=== PATIENT | female | born 1940 | race Caucasian/White ===

== ENCOUNTER 2016-07-06 19:45 | Inpatient (IN) | payer OTHER, MEDICAID ==
[2016-07-06] MEDS ORDERED: NS 1000 ML 1,000 ML IV SCH (22:25)
[2016-07-06] MEDS ORDERED: LASIX IVP ONE (22:25)
[2016-07-06] MEDS ORDERED: STERILE WATER IRRIGATION IR ONE (22:47)
[2016-07-06 23:41] LABS: EOSINOPHILS # (AUTO) 0.1 x10^3/uL (0.0-0.2); MEAN CORPUSCULAR VOLUME 86.7 fL (80.0-100.0); MONOCYTES # (AUTO) 0.4 x10^3/uL (0.3-0.8); NEUTROPHILS # (AUTO) 2.2 x10^3/uL (2.2-4.8); WHITE BLOOD COUNT 3.7 X10^3/uL (3.6-10.0)
[2016-07-06 23:48] LABS: BASOPHILS % (AUTO) 0.4 % (0.2-1.0); EOSINOPHILS % (AUTO) 3.1 % (0.9-2.9); MEAN CORPUSCULAR HEMOGLOBIN 28.1 pg (27.0-34.0); MEAN CORPUSCULAR HGB CONC 32.4 g/dL (33.0-35.0); MEAN PLATELET VOLUME 8.7 fL (7.4-11.0); MONOCYTES % (AUTO) 10.8 % (0.0-13.0); NEUTROPHILS % (AUTO) 58.7 % (42.0-75.0); PLATELET COUNT 110 X10^3/uL (150.0-450.0); RED BLOOD COUNT 2.26 X10^6/uL (3.5-5.4); RED CELL DISTRIBUTION WIDTH 18.4 % (11.6-16.5)
[2016-07-06 23:53] LABS: HEMATOCRIT 19.6 % (36.0-47.0); HEMOGLOBIN 6.4 g/dL (12.0-16.0)
[2016-07-06 23:56] LABS: ALANINE AMINOTRANSFERASE 12 Units/L (12-78); ALBUMIN 1.9 g/dL (3.4-5.0); ALKALINE PHOSPHATASE 82 Units/L (46-116); ASPARTATE AMINO TRANSFERASE 13 Units/L (15-37); BLOOD UREA NITROGEN 17 mg/dL (7-18); CALCIUM 9.2 mg/dL (8.5-10.1); CARBON DIOXIDE 37.7 mmol/L (21-32); CHLORIDE 101 mmol/L (98-107); COR CA(FOR HYPOALB) 10.9 mg/dL (8.5-10.1); COR NA(FOR HYPERGLY) 141 mmol/L (136-145); CREATININE 0.47 mg/dL (0.55-1.02); FREE T4 (FREE THYROXINE) 1.15 ng/dL (0.76-1.46); GLUCOSE 148 mg/dL (65-99); MAGNESIUM 1.7 mg/dL (1.7-2.9); SODIUM 140 mmol/L (136-145); TOTAL PROTEIN 8.2 g/dL (6.4-8.2); TSH (3RD GENERATION) 1.756 uIU/mL (0.358-3.74); eGFR BLACK RACES > 60 (>60); eGFR NON BLACK RACES > 60 (>60)
[2016-07-07 00:03] LABS: BILIRUBIN,URINE NEGATIVE (NEGATIVE); BLOOD/HEMOGLOBIN,URINE 1+ (NEGATIVE); GLUCOSE, URINE NEGATIVE (NEGATIVE); KETONES,URINE NEGATIVE (NEGATIVE); LEUKOCYTE ESTERASE ,URINE 3+ (NEGATIVE); NITRITES,URINE NEGATIVE (NEGATIVE); PROTEIN,URINE NEGATIVE (NEGATIVE); UROBILINOGEN,URINE NORMAL (NORMAL)
[2016-07-07] MEDS ORDERED: SANTYL ONE (00:10)
[2016-07-07 00:23] LABS: IRON 26 ug/dL (50-175); TRANSFERRIN 130 mg/dL (202-364)
[2016-07-07 00:29] LABS: APPEARANCE,URINE SLIGHTLY HAZY (CLEAR); BACTERIA,URINE 1+ /HPF (NEGATIVE); COLOR,URINE YELLOW (YELLOW); SQUAMOUS EPITHELIAL CELL,UR RARE /HPF (NEGATIVE); YEAST,URINE MANY /HPF (NEGATIVE)
[2016-07-07] MEDS: DUONEB 0.5 MG/3 MG NEB SCH ×3 (00:35→11:40)
[2016-07-07 02:56] VITALS: BMI 25.1
[2016-07-07] MEDS ORDERED: NS 250 ML IV 250 ML IV ONE (02:58)
[2016-07-07] MEDS: SANTYL EXT SCH ×2 (03:00→11:52)
--- NOTE | 2016-07-07 08:16 | DR.H&P ---
H&P - History & Physical for Day of: H&P Date: 07/06/16 - Chief Complaint Chief Complaint: Generalized weakness - Allergies Allergies/Adverse Reactions: Allergies Allergy/AdvReac Type Severity Reaction Status Date / Time NOVA Inhibitors Allergy Verified 01/16/16 22:30 Lisinopril Allergy Verified 01/16/16 22:30 Ethanol AdvReac Verified 01/16/16 22:30 [From Duragesic Disc Transdermal System] Fentanyl AdvReac Verified 01/16/16 22:30 [From Duragesic Disc Transdermal System] - History of Present Illness History of Present Illness: Pt is a 75 y/o WF with a h/o multiple medical problems. Pt noted by caregivers to be less active than usual and c/o generalized weakness. Pt had outpt labs ordered 2 days ago with a hgb of 6.8, which was repeated today and hgb noted to be 6.3. Pt was admitted for further w /u and for transfusion of 2 units of PRBC's due to symptomatic anemia. - Past Medical History Past Medical History: Anemia, Arthritis, CHF, COPD, Diabetes, GERD, Hypertension Additional Medical History: H/o G-B syndrome, currently receiving intermittent IGG tx - Past Surgical History Surgical History: Hysterectomy, Joint Replacement, Ortho Surgery - Family History Family Medical History: Diabetes Mellitus, Cancer, Hypertension - Social History Does patient currently use any type of tobacco product: No Type of Tobacco Use: None Alcohol Use: None Drug Use: None - Medications Home Medications: Ascorbic Acid [VITAMIN C tab 500 mg *] 500 mg PO BID 07/06/16 [History Confirmed 07/06/16] Baclofen 10 mg PO BID 07/06/16 [History Confirmed 07/06/16] Collagenase [SANTYL OINTMENT *] 1 applic TOP DAILY 07/06/16 [History Confirmed 07/06/16] Ertapenem Sodium [INVANZ INJ 1 GRAM VIAL *] 1 grams IV DAILY 07/06/16 [History Confirmed 07/06/16] Gabapentin [Gabapentin] 800 mg PO HS 07/06/16 [History Confirmed 07/06/16] Multiple Vitamins W/ Minerals [Multivitamin Adults] 1 tab PO DAILY 07/06/16 [ History Confirmed 07/06/16] Potassium Chloride Microencaps [Klor-Con M10] 10 meq PO BID 07/06/16 [History Confirmed 07/06/16] Sulindac 150 mg PO HS 07/06/16 [History Confirmed 07/06/16] Zinc 50 mg PO DAILY 07/06/16 [History Confirmed 07/06/16] - Review of Systems Constitutional: See HPI Eyes: No Symptoms Reported ENT: No Symptoms Reported Respiratory: No Symptoms Reported Cardiovascular: No Symptoms Reported Gastrointestinal: No Symptoms Reported Genitourinary: No Symptoms Reported Musculoskeletal: No Symptoms Reported Skin: No Symptoms Reported - Physical Exam Vital Signs: Temperature 98.1 F Pulse Rate [Brachial] 90 Pulse Rate 89 Respiratory Rate 20 Blood Pressure [Left Arm] 149/69 Blood Pressure [Left Calf] 149/70 Blood Pressure [Right Calf] 102/54 Blood Pressure 149/70 O2 Sat by Pulse Oximetry 95 Oriented: Normal Eyes: Normal Ear: Normal Nose: Normal Throat: Normal Respiratory: Clear Throughout Cardiovascular: Normal : Normal Auscultation: Bowel Sounds: Normal Palpation: Normal Tenderness: Normal Skin: Normal Musculoskeletal: Normal Mood Description: Calm Affect: Normal Speech Pattern: Clear - Assessment/Plan (1) Symptomatic anemia Status: Acute Plan: 1. Admit for OPO. 2. NS at KVO. 3. UA C&S. 4. CMP, CBC. 5. Type and cross and transfuse 2 U of PRBC's. 6. Repeat CBC in am. 7. Tentatively plan to d/c home in am after transfusions completed. (2) Generalized weakness Status: Acute Plan: As above (3) Guillain-Ovid Status: Chronic Plan: Cont outpt IGG tx as ordered
[2016-07-07] MEDS ORDERED: LASIX ONE (08:21)
[2016-07-07] MEDS ORDERED: DUONEB 0.5 MG/3 MG IN SCH (09:00)
[2016-07-07] MEDS ORDERED: INVANZ INJ 1 GM VIAL IV SCH (09:00)
[2016-07-07] MEDS ORDERED: [UNRECOGNIZED DRUG - OTHER] PO SCH (09:00)
[2016-07-07] MEDS ORDERED: LIORESAL PO SCH (09:00)
[2016-07-07] MEDS ORDERED: CLARITIN PO SCH (09:00)
[2016-07-07] MEDS ORDERED: NEURONTIN CAP 400 MG PO SCH ×2 (09:00→21:00)
[2016-07-07] MEDS ORDERED: [UNRECOGNIZED DRUG - OTHER] PO SCH (09:00)
[2016-07-07] MEDS ORDERED: [UNRECOGNIZED DRUG - OTHER] PO SCH (09:00)
[2016-07-07] MEDS ORDERED: [UNRECOGNIZED DRUG - OTHER] PO SCH (09:00)
[2016-07-07] MEDS ORDERED: VITAMIN C PO SCH (09:00)
[2016-07-07] MEDS ORDERED: SANTYL TOP SCH (09:00)
[2016-07-07] MEDS ORDERED: LASIX PO SCH (09:00)
[2016-07-07] MEDS ORDERED: MICRO K EXTEN CAP 10 MEQ PO SCH (10:00)
[2016-07-07] MEDS ORDERED: PEPCID 20 MG IV PREMIX* 20 MG/50 ML BAG IV SCH (11:00)
[2016-07-07] MEDS ORDERED: PROTONIX INJ 40 MG VIAL IVP SCH (11:00)
[2016-07-07 13:53] LABS: BASOPHILS % (AUTO) 0.6 % (0.2-1.0); EOSINOPHILS # (AUTO) 0.1 x10^3/uL (0.0-0.2); EOSINOPHILS % (AUTO) 1.1 % (0.9-2.9); HEMATOCRIT 27.6 % (36.0-47.0); LYMPHOCYTES # (AUTO) 0.7 X10^3/uL (1.3-2.9); LYMPHOCYTES % (AUTO) 14.9 % (21.0-51.0); MEAN CORPUSCULAR HEMOGLOBIN 28.4 pg (27.0-34.0); MEAN CORPUSCULAR HGB CONC 32.9 g/dL (33.0-35.0); MEAN CORPUSCULAR VOLUME 86.6 fL (80.0-100.0); MEAN PLATELET VOLUME 8.6 fL (7.4-11.0); MONOCYTES # (AUTO) 0.3 x10^3/uL (0.3-0.8); MONOCYTES % (AUTO) 7.4 % (0.0-13.0); NEUTROPHILS # (AUTO) 3.4 x10^3/uL (2.2-4.8); PLATELET COUNT 128 X10^3/uL (150.0-450.0); RED BLOOD COUNT 3.19 X10^6/uL (3.5-5.4); RED CELL DISTRIBUTION WIDTH 16.9 % (11.6-16.5); WHITE BLOOD COUNT 4.5 X10^3/uL (3.6-10.0)
[2016-07-07 13:55] LABS: BLOOD UREA NITROGEN 16 mg/dL (7-18); CALCIUM 8.8 mg/dL (8.5-10.1); CHLORIDE 100 mmol/L (98-107); COR NA(FOR HYPERGLY) 141 mmol/L (136-145); GLUCOSE 177 mg/dL (65-99); HEMOGLOBIN 9.1 g/dL (12.0-16.0); SODIUM 139 mmol/L (136-145); eGFR BLACK RACES > 60 (>60); eGFR NON BLACK RACES > 60 (>60)
[2016-07-07 17:06] VITALS: BP 96/62
[2016-07-07] MEDS: PROPAFENONE HCL PO SCH (17:11)
[2016-07-07] MEDS ORDERED: MIRAPEX TAB 0.25 MG PO SCH (21:00)
[2016-07-07] MEDS ORDERED: SULINDAC PO SCH (21:00)
[2016-07-07] MEDS ORDERED: [UNRECOGNIZED DRUG - OTHER] PO SCH (21:00)
[2016-07-07] MEDS ORDERED: PRAVACHOL PO SCH (21:00)
[2016-07-07] MEDS ORDERED: POTASSIUM CHLORIDE LIQ 20 MEQ UDC PO SCH (21:00)
[2016-07-08] MEDS ORDERED: TAB-A-VITE PO SCH (09:00)
[2016-07-08] MEDS ORDERED: ZANTAC PO SCH (09:00)
[2016-07-08] MEDS ORDERED: ZINC SULFATE PO SCH (09:00)
== END 2016-07-07 17:35 | disposition home health service (06) | DRG 811 ==
LOC: MED/SURG 19:45
PROVIDERS: ADMIT Internal Medicine; ATTEND Internal Medicine
PROC: 30233N1 Transfusion of Nonautologous Red Blood Cells into Peripheral Vein, Percutaneous Approach (ICD-10-PCS; principal; 2016-07-07)
PROC: 30233N1 Transfusion of Nonautologous Red Blood Cells into Peripheral Vein, Percutaneous Approach (ICD-10-PCS; 2016-07-07)
DX: D64.89 Other specified anemias (principal); R53.1 Weakness; R94.31 Abnormal electrocardiogram [ECG] [EKG]; G61.0 Guillain-Barre syndrome; B96.5 Pseudomonas (aeruginosa) (mallei) (pseudomallei) as the cause of diseases classified elsewhere; L89.154 Pressure ulcer of sacral region, stage 4; L89.314 Pressure ulcer of right buttock, stage 4
CPT/HCPCS: 36415; 36430; 80048; 80053; 81001; 82607; 82728; 82746; 83540; 83550; 83735; 84439; 84443; 84466; 85025; 86850; 86900; 86901; 86922; 87086; 87088; 87186; 94640; 94760; A4217; A4222; C9113; P9016; S0028; J1940; J7620

== ENCOUNTER 2017-07-26 11:54 | Inpatient (IN) ==
[2017-07-26] MEDS ORDERED: NS 1000 ML 1,000 ML ONE ×2 (13:05→14:38)
[2017-07-26] MEDS ORDERED: NS 1000 ML 1,000 ML IV ONE (13:13)
[2017-07-26] MEDS: OFIRMEV IV 1000 MG VIAL 500 MG/50 ML VIAL IV PRN ×2 (13:20→14:46)
--- NOTE | 2017-07-26 13:21 | DR.URINEF ---
HPI - Time Seen Time seen: 13:05 - PCP Primary Care Physician: VIJI BROOKS - Complaint Chief Complaint Doctors Comments: I agree with statement as written. In additon patient states that she has been vomiting for one day w/o diarrhea. Chief Complaint:: PT PRESENTED WITH C/O OF < FEVER AND URINARY ISSUES, PT IS A POOR HISTORIAN NO FAMILY HERE AND PT STATES "I CAN'T REMEMBER" PT HAS A TRACH, PICC LINE TO RIGHT AC, COLOSTOMY TO ABD, PEG TUBE , AND SHE C/O THAT SHE 2 SACRAL DRESSINGS". Self Treatment fo Chief Complaint: PT IS ALERT AND ORIENTED AND PT HAS HEMAPALEGIA, AND PAREPALEGIA, PT IS PARALIZED FROM THE WAIST DOWN AND PT CAN'T MOVE HER RIGHT EXT'S. - Source History Provided: Patient - Mode of Arrival Mode of Arrival: EMS - Timing Onset of Chief Complaint: 07/26/17 PMH - PMH Past Medical History: Yes Past Medical History: Anemia, Anxiety, Arthritis, CHF, Depression, Diabetes, Dyslipidemia, GERD, Hypertension Past Medical History Comment: UTI, DIVERTICULITIS , PACERMAKER, HX. EDGAR VILLALPANDO AND PARAPLEGIC, HEMIPLEGIA ,, Past Surgical History: Yes Surgical History: Hysterectomy, Joint Replacement, Ortho Surgery - Family History History of Family Medical Conditions: Yes Family Medical History: Diabetes Mellitus, Cancer, Hypertension - Social History Does patient currently use any type of tobacco product: No Have you used tobacco products in the last 12 months: No Type of Tobacco Use: None Does any household member use tobacco: No Alcohol Use: None Do you use any recreational Drugs:: No Lives With: Family Lives Where: Home - infectious screening In the last 2 months have you had wt loss of >10#?: YES Have you had fever, night sweats or hemotysis?: Yes Have you traveled outside the country in the last 6 months?: No Isolation: Standard ROS - Review of Systems Eyes: No Symptoms Reported ENTM: No Symptoms Reported Respiratoy: No Symptoms Reported Cardiovascular: No Symptoms Reported Gastrointestinal/Abdominal: Vomiting Genitourinary: Dysuria Neurological: No Symptoms Reported Musculoskeletal: No Symptoms Reported Integumentary: No Symptoms Reported Hematologic/Lymphatic: No Symptoms Reported Endocrine: No Symptoms Reported Psychiatric: No Symptoms Reported All Other Systems: Reviewed and Negative PE - Vital Signs Vitals: Temperature 103.2 F Pulse Rate [Left] 96 Pulse Rate 70 Respiratory Rate 20 Blood Pressure [Left Arm] 96/62 Blood Pressure [Left Calf] 149/70 Blood Pressure [Right Calf] 113/96 Blood Pressure 99/50 O2 Sat by Pulse Oximetry 98 - General Limitations: No Limitations General Appearance: Alert, In No Apparent Distress - Head Head Exam: Normal Inspection, Atraumatic - Eyes Eye exam: Normal Appearance, PERRL, EOMI - ENT ENT Exam: Mucous Membranes Dry - Neck Neck Exam: Normal Inspection - Chest Chest Inspection: Normal Inspection, Symmetric Chest Wall Rise - Respiratory Respiratory Exam: Normal Lung Sounds Bilat Respiratory Exam: Bilateral Clear to Auscultation - Cardiovascular Cardiovascular Exam: Regular Rate, Normal Rhythm - Abdominal Exam Abdominal Exam: Normal Inspection, Normal Bowel Sounds Abdominal Tenderness: negative: RUQ, RLQ, LUQ, LLQ, Epigastrium, Suprapubic, Diffuse, Mild, Moderate, Severe, Other - Rectal Rectal Exam: Deferred - Genitourinary External Exam: Female: Deferred : Speculum Exam (Female): Deferred : Bimanual Exam (female): Deferred - Extremities Extremities Exam: Normal Inspection - Back Back Exam: Normal Inspection, Full ROM - Neurologic Neurological Exam: Alert, Oriented X3, CN II-XII Intact - Psychiatric Psychiatric Exam: Normal Affect, Normal Mood - Skin Skin Exam: Warm, Dry Course - Consultation Called: 15:20 (Dr Hartley agreed to admit for further treatment) ROR - Labs Reviewed Result Diagrams: 07/26/17 13:15 07/26/17 13:15 Laboratory: WBC 13.5 X10^3/uL (3.6-10.0) H 07/26/17 13:15 RBC 2.97 X10^6/uL (3.5-5.4) L 07/26/17 13:15 Hgb 8.8 g/dL (12.0-16.0) L 07/26/17 13:15 Hct 26.8 % (36.0-47.0) L 07/26/17 13:15 MCV 90.2 fL (80.0-100.0) 07/26/17 13:15 MCH 29.6 pg (27.0-34.0) 07/26/17 13:15 MCHC 32.9 g/dL (33.0-35.0) L 07/26/17 13:15 RDW 15.4 % (11.6-16.5) 07/26/17 13:15 Plt Count 198 X10^3/uL (150.0-450.0) 07/26/17 13:15 MPV 8.1 fL (7.4-11.0) 07/26/17 13:15 Neut % (Auto) 89.2 % (42.0-75.0) H 07/26/17 13:15 Lymph % (Auto) 5.0 % (21.0-51.0) L 07/26/17 13:15 [place] % (Auto) 5.4 % (0.0-13.0) 07/26/17 13:15 Eos % (Auto) 0.2 % (0.9-2.9) L 07/26/17 13:15 Baso % (Auto) 0.2 % (0.2-1.0) 07/26/17 13:15 Neut # (Auto) 12.0 x10^3/uL (2.2-4.8) H 07/26/17 13:15 Lymph # (Auto) 0.7 X10^3/uL (1.3-2.9) L 07/26/17 13:15 [place] # (Auto) 0.7 x10^3/uL (0.3-0.8) 07/26/17 13:15 Eos # (Auto) 0.0 x10^3/uL (0.0-0.2) 07/26/17 13:15 Baso # (Auto) 0.0 X10^3/uL (0.0-0.1) 07/26/17 13:15 Absolute Nucleated RBC 0.0 /100WBC 07/26/17 13:15 Sodium 136 mmol/L (136-145) 07/26/17 13:15 Corrected Sodium TNP 07/26/17 13:15 Potassium 4.3 mmol/L (3.5-5.1) 07/26/17 13:15 Chloride 99 mmol/L (98-107) 07/26/17 13:15 Carbon Dioxide 28.2 mmol/L (21-32) 07/26/17 13:15 BUN 20 mg/dL (7-18) H 07/26/17 13:15 Creatinine 0.47 mg/dL (0.55-1.02) L 07/26/17 13:15 Est GFR (MDRD) Af Amer > 60 (>60) 07/26/17 13:15 Est GFR (MDRD) Non-Af > 60 (>60) 07/26/17 13:15 Glucose 86 mg/dL (65-99) 07/26/17 13:15 Lactic Acid < 0.3 mmol/L (0.4-2.0) L 07/26/17 13:15 Calcium 8.5 mg/dL (8.5-10.1) 07/26/17 13:15 Corrected Calcium 10.1 mg/dL (8.5-10.1) 07/26/17 13:15 Total Bilirubin 0.60 mg/dL (0.2-1.0) 07/26/17 13:15 AST 13 Units/L (15-37) L 07/26/17 13:15 ALT 14 Units/L (12-78) 07/26/17 13:15 Alkaline Phosphatase 91 Units/L (46-116) 07/26/17 13:15 Creatine Kinase 21 Units/L (26-192) L 07/26/17 13:15 CK-MB (CK-2) < 1.0 ng/mL (0-4.0) 07/26/17 13:15 CK/CKMB % Calc 4.8 % (<4) 07/26/17 13:15 Troponin I < 0.02 ng/mL (0-1.5) 07/26/17 13:15 C-Reactive Protein 178.80 mg/L (0-3.0) H 07/26/17 13:15 Total Protein 6.5 g/dL (6.4-8.2) 07/26/17 13:15 Albumin 2.0 g/dL (3.4-5.0) L 07/26/17 13:15 Globulin 4.5 g/dL (2.5-4.5) 07/26/17 13:15 Albumin/Globulin Ratio 0.4 Ratio (1.1-2.1) L 07/26/17 13:15 Specimen Type Catherized urine 07/26/17 13:20 Urine Color Yellow (YELLOW) 07/26/17 13:20 Urine Appearance Hazy (CLEAR) 07/26/17 13:20 Urine pH 5.0 (5.0 - 8.0) 07/26/17 13:20 Ur Specific [place] 1.015 (1.000-1.030) 07/26/17 13:20 Urine Protein 2+ (NEGATIVE) 07/26/17 13:20 Urine Glucose (UA) Negative (NEGATIVE) 07/26/17 13:20 Urine Ketones 3+ (NEGATIVE) 07/26/17 13:20 Urine Occult Blood 3+ (NEGATIVE) 07/26/17 13:20 Urine Nitrite Positive (NEGATIVE) 07/26/17 13:20 Urine Bilirubin Negative (NEGATIVE) 07/26/17 13:20 Urine Urobilinogen Normal (NORMAL) 07/26/17 13:20 Ur Leukocyte Esterase 3+ (NEGATIVE) 07/26/17 13:20 Urine RBC 5-10 /HPF (NONE SEEN) 07/26/17 13:20 Urine WBC 20-30 /HPF (NONE SEEN) 07/26/17 13:20 Ur Squamous Epith Cells Few /HPF (NEGATIVE) 07/26/17 13:20 Urine Bacteria Trace /HPF (NEGATIVE) 07/26/17 13:20 Hyaline Casts Few /LPF (NEGATIVE) 07/26/17 13:20 Urine Mucus Few /HPF (NEGATIVE) 07/26/17 13:20 Ur Culture Indicated? Yes/culture set up 07/26/17 13:20 - XRAY XRAY Interpreted by: Radiologist (Chest: Moderate elevqation of the right hemidiaphragm is noted. Very minimal bibasilar atelectatic change/infiltrate is noted. The heart is obscured on the right. Electronic cardiac device is present on the left and its leads apopear to be in appropriate position. A tracheostomy tube is prestnt. Prior cervical spine surgery been performed. Moderate to moderately severe degenerative changes noted in the visualized shoulders. Impression: Moderate elevation of the right right hemidiaphragm. Minimal bibasilar atelectatic change/infiltrate. No significant change is noted when compared to the prior examination.) - Diagnosis Discharge Problem: UTI (urinary tract infection), Dehydration, mild, Rule Out Bactremia - Discharge Plan Condition: Stable - Follow ups/Referrals Follow ups/Referrals: JULIANNE HALLMAN [Primary Care Provider] - 3 days - Instructions
[2017-07-26 13:35] LABS: BASOPHILS % (AUTO) 0.2 % (0.2-1.0); EOSINOPHILS % (AUTO) 0.2 % (0.9-2.9); HEMATOCRIT 26.8 % (36.0-47.0); HEMOGLOBIN 8.8 g/dL (12.0-16.0); LYMPHOCYTES # (AUTO) 0.7 X10^3/uL (1.3-2.9); MEAN CORPUSCULAR HEMOGLOBIN 29.6 pg (27.0-34.0); MEAN CORPUSCULAR HGB CONC 32.9 g/dL (33.0-35.0); MEAN CORPUSCULAR VOLUME 90.2 fL (80.0-100.0); MEAN PLATELET VOLUME 8.1 fL (7.4-11.0); MONOCYTES # (AUTO) 0.7 x10^3/uL (0.3-0.8); MONOCYTES % (AUTO) 5.4 % (0.0-13.0); NEUTROPHILS % (AUTO) 89.2 % (42.0-75.0); PLATELET COUNT 198 X10^3/uL (150.0-450.0); RED BLOOD COUNT 2.97 X10^6/uL (3.5-5.4); RED CELL DISTRIBUTION WIDTH 15.4 % (11.6-16.5); WHITE BLOOD COUNT 13.5 X10^3/uL (3.6-10.0)
[2017-07-26 13:37] LABS: CHLORIDE 99 mmol/L (98-107); SODIUM 136 mmol/L (136-145)
--- NOTE | 2017-07-26 13:39 | RAD ---
HISTORY: Fever. Study: AP portable chest Comparison: 01/16/2016 Findings: Moderate elevation of the right hemidiaphragm is noted. Very minimal bibasilar atelectatic change/in filtrate is noted. The heart is obscured on the right. Electronic cardiac device is present on the left and its leads appear to be in appropriate position. A tracheostomy tube is present. Prior cerv ical spine surgery been performed.. Moderate to moderately severe degenerative changes noted in the visualized shoulders. IMPRESSION: 1. Moderate elevation of the right hemidiaphragm. 2. Minimal bibasilar atelectatic change/infiltrate. 3. No significant change is noted when compared to the prior examination. Reported By:
[2017-07-26 13:46] LABS: BILIRUBIN,URINE NEGATIVE (NEGATIVE); BLOOD/HEMOGLOBIN,URINE 3+ (NEGATIVE); GLUCOSE, URINE NEGATIVE (NEGATIVE); KETONES,URINE 3+ (NEGATIVE); LEUKOCYTE ESTERASE ,URINE 3+ (NEGATIVE); NITRITES,URINE POSITIVE (NEGATIVE); PROTEIN,URINE 2+ (NEGATIVE); UROBILINOGEN,URINE NORMAL (NORMAL)
[2017-07-26 13:47] LABS: APPEARANCE,URINE HAZY (CLEAR); BACTERIA,URINE TRACE /HPF (NEGATIVE); COLOR,URINE YELLOW (YELLOW); HYALINE CASTS, URINE FEW /LPF (NEGATIVE); MUCUS,URINE FEW /HPF (NEGATIVE); SQUAMOUS EPITHELIAL CELL,UR FEW /HPF (NEGATIVE)
[2017-07-26 13:58] LABS: ALANINE AMINOTRANSFERASE 14 Units/L (12-78); ALKALINE PHOSPHATASE 91 Units/L (46-116); ASPARTATE AMINO TRANSFERASE 13 Units/L (15-37); BLOOD UREA NITROGEN 20 mg/dL (7-18); CALCIUM 8.5 mg/dL (8.5-10.1); CARBON DIOXIDE 28.2 mmol/L (21-32); COR CA(FOR HYPOALB) 10.1 mg/dL (8.5-10.1); CREATININE 0.47 mg/dL (0.55-1.02); TOTAL PROTEIN 6.5 g/dL (6.4-8.2); eGFR NON BLACK RACES > 60 (>60)
[2017-07-26 14:05] LABS: LACTIC ACID < 0.3 mmol/L (0.4-2.0)
[2017-07-26 14:11] LABS: CREATINE KINASE 21 Units/L (26-192); CREATINE KINASE MB < 1.0 ng/mL (0-4.0); TROPONIN I < 0.02 ng/mL (0-1.5)
[2017-07-26 14:12] LABS: CKMB % 4.8 % (<4)
[2017-07-26] MEDS ORDERED: OFIRMEV IV 1000 MG VIAL 500 MG/50 ML VIAL IV PRN (14:50)
[2017-07-26] MEDS ORDERED: ANCEF VIAL 1 GRAM 1 G in NS 100 ML IV + SPIKE MINIBAG* 100 ML IV ONE (14:51)
[2017-07-26] MEDS ORDERED: ANCEF VIAL 1 GRAM ONE (14:52)
[2017-07-26] MEDS ORDERED: NS 100 ML IV + SPIKE MINIBAG* 100 ML IV ONE ×2 (14:53→22:11)
[2017-07-26] MEDS ORDERED: GENTAMICIN INJ 80 MG in NS 100 ML IV 100 ML IV ONE (15:49)
[2017-07-26] MEDS ORDERED: BACTROBAN TOPICAL OINT TOP PRN (15:51)
[2017-07-26] MEDS ORDERED: PATIENT'S HOME MEDICATION (Albuterol Sulfate 1 INH) INH PRN (15:51)
[2017-07-26] MEDS ORDERED: SANTYL TOP PRN (15:51)
[2017-07-26] MEDS ORDERED: DUONEB 0.5 MG/3 MG IN PRN (15:51)
[2017-07-26] MEDS ORDERED: DUONEB 0.5 MG/3 MG ONE (16:18)
[2017-07-26] MEDS: DUONEB 0.5 MG/3 MG IN PRN (16:20)
[2017-07-26] MEDS ORDERED: VENTOLIN or PROAIR HFA IN PRN (16:34)
[2017-07-26] MEDS ORDERED: STERILE WATER IRRIGATION IR ONE (18:11)
[2017-07-26 20:25] LABS: CKMB % 5.6 % (<4); CREATINE KINASE 18 Units/L (26-192); CREATINE KINASE MB < 1.0 ng/mL (0-4.0); TROPONIN I 0.02 ng/mL (0-1.5)
[2017-07-26] MEDS ORDERED: PATIENT'S HOME MEDICATION (Potassium Chloride [Klor-Con 10] 1 TAB) PO SCH (21:00)
[2017-07-26] MEDS: MICRO K EXTEN CAP 10 MEQ PO SCH (21:28)
[2017-07-26] MEDS: NEURONTIN CAP 400 MG PO SCH (21:29)
[2017-07-26] MEDS: PriLOSEC PO SCH (21:30)
[2017-07-26] MEDS ORDERED: PROPAFENONE HCL PO SCH (22:00)
[2017-07-26] MEDS: PROPAFENONE HCL PO SCH (22:01)
[2017-07-26] MEDS ORDERED: AMPICILLIN VIAL 1 GRAM ONE (22:11)
[2017-07-26] MEDS ORDERED: GENTAMICIN INJ ONE (22:20)
[2017-07-26] MEDS: AMPICILLIN VIAL 1 GRAM 1 G in NS 50 ML IV + SPIKE MINIBAG* 50 ML IV SCH (22:21)
[2017-07-26] MEDS: SULINDAC PO SCH (22:22)
[2017-07-26] MEDS ORDERED: NS 100 ML IV 100 ML IV ONE (23:41)
[2017-07-27] MEDS: AMPICILLIN VIAL 1 GRAM 1 G in NS 50 ML IV + SPIKE MINIBAG* 50 ML IV SCH (03:10)
[2017-07-27] MEDS ORDERED: NS 100 ML IV + SPIKE MINIBAG* 100 ML IV ONE ×2 (03:11→08:03)
[2017-07-27] MEDS ORDERED: AMPICILLIN VIAL 1 GRAM ONE ×2 (03:11→08:01)
[2017-07-27 05:53] LABS: BILIRUBIN,URINE 1+ (NEGATIVE); BLOOD/HEMOGLOBIN,URINE 3+ (NEGATIVE); GLUCOSE, URINE NEGATIVE (NEGATIVE); KETONES,URINE 4+ (NEGATIVE); LEUKOCYTE ESTERASE ,URINE 2+ (NEGATIVE); NITRITES,URINE POSITIVE (NEGATIVE); PROTEIN,URINE 2+ (NEGATIVE); UROBILINOGEN,URINE 2+ (NORMAL)
[2017-07-27 06:00] LABS: APPEARANCE,URINE SLIGHTLY HAZY (CLEAR); BACTERIA,URINE TRACE /HPF (NEGATIVE); COLOR,URINE AMBER (YELLOW); MUCUS,URINE FEW /HPF (NEGATIVE); RBC,URINE 20-30 /HPF (NONE SEEN); SQUAMOUS EPITHELIAL CELL,UR RARE /HPF (NEGATIVE)
[2017-07-27] MEDS: D5 1/2 NS 1000 ML 1,000 ML IV SCH ×2 (06:02→15:24)
[2017-07-27] MEDS: PROPAFENONE HCL PO SCH ×3 (06:02→21:00)
[2017-07-27 06:10] LABS: BASOPHILS # (AUTO) 0.1 X10^3/uL (0.0-0.1); BASOPHILS % (AUTO) 0.3 % (0.2-1.0); HEMATOCRIT 24.5 % (36.0-47.0); HEMOGLOBIN 8.1 g/dL (12.0-16.0); LYMPHOCYTES # (AUTO) 0.7 X10^3/uL (1.3-2.9); LYMPHOCYTES % (AUTO) 3.9 % (21.0-51.0); MEAN CORPUSCULAR HEMOGLOBIN 29.9 pg (27.0-34.0); MEAN CORPUSCULAR HGB CONC 32.8 g/dL (33.0-35.0); MEAN CORPUSCULAR VOLUME 90.9 fL (80.0-100.0); MEAN PLATELET VOLUME 8.1 fL (7.4-11.0); MONOCYTES % (AUTO) 6.1 % (0.0-13.0); NEUTROPHILS # (AUTO) 15.1 x10^3/uL (2.2-4.8); NEUTROPHILS % (AUTO) 89.7 % (42.0-75.0); PLATELET COUNT 177 X10^3/uL (150.0-450.0); RED CELL DISTRIBUTION WIDTH 15.4 % (11.6-16.5); WHITE BLOOD COUNT 16.9 X10^3/uL (3.6-10.0)
[2017-07-27 06:21] LABS: ALANINE AMINOTRANSFERASE < 6 Units/L (12-78); ALBUMIN 1.7 g/dL (3.4-5.0); ALKALINE PHOSPHATASE 77 Units/L (46-116); ASPARTATE AMINO TRANSFERASE 15 Units/L (15-37); BLOOD UREA NITROGEN 21 mg/dL (7-18); CARBON DIOXIDE 26.7 mmol/L (21-32); CHLORIDE 100 mmol/L (98-107); COR CA(FOR HYPOALB) 9.8 mg/dL (8.5-10.1); CREATININE 0.53 mg/dL (0.55-1.02); SODIUM 138 mmol/L (136-145); TOTAL PROTEIN 5.8 g/dL (6.4-8.2); eGFR NON BLACK RACES > 60 (>60)
[2017-07-27] MEDS: VITAMIN C PO SCH (09:19)
[2017-07-27] MEDS: AMPICILLIN VIAL 1 GRAM 1 G in NS 100 ML IV + SPIKE MINIBAG* 100 ML IV SCH ×3 (09:19→21:03)
[2017-07-27] MEDS: CLARITIN PO SCH (09:20)
[2017-07-27] MEDS: LASIX PO SCH (09:20)
[2017-07-27] MEDS: MICRO K EXTEN CAP 10 MEQ PO SCH ×2 (09:20→20:43)
[2017-07-27] MEDS: TYLENOL 500 MG TAB EXTRA STRENGTH PO PRN ×2 (09:45→17:52)
[2017-07-27 10:07] VITALS: BMI 23.6
[2017-07-27] MEDS ORDERED: NS IRRIGATION 500 ML IR ONE (10:26)
[2017-07-27] MEDS ORDERED: MAALOX or MYLANTA ONE (11:37)
[2017-07-27] MEDS: MAALOX or MYLANTA PO PRN ×2 (12:14→17:52)
[2017-07-27] MEDS: ZOFRAN INJ 4 MG VIAL IVP PRN (17:06)
[2017-07-27] MEDS: PEPCID 20 MG IV PREMIX* 20 MG/50 ML BAG IV SCH (20:40)
[2017-07-27] MEDS: NEURONTIN CAP 400 MG PO SCH (20:43)
[2017-07-27] MEDS: PriLOSEC PO SCH (20:44)
[2017-07-27] MEDS: SULINDAC PO SCH (20:46)
[2017-07-27] MEDS ORDERED: PEPCID 20 MG IV PREMIX* 50 ML IV SCH (21:00)
[2017-07-28] MEDS: D5 1/2 NS 1000 ML 1,000 ML IV SCH ×4 (00:14→10:37)
[2017-07-28] MEDS: AMPICILLIN VIAL 1 GRAM 1 G in NS 100 ML IV + SPIKE MINIBAG* 100 ML IV SCH ×2 (03:15→08:32)
[2017-07-28] MEDS: PROPAFENONE HCL PO SCH ×3 (05:17→21:19)
[2017-07-28 05:18] LABS: BASOPHILS # (AUTO) 0.1 X10^3/uL (0.0-0.1); BASOPHILS % (AUTO) 0.3 % (0.2-1.0); HEMATOCRIT 22.7 % (36.0-47.0); HEMOGLOBIN 7.3 g/dL (12.0-16.0); LYMPHOCYTES # (AUTO) 0.5 X10^3/uL (1.3-2.9); LYMPHOCYTES % (AUTO) 2.2 % (21.0-51.0); MEAN CORPUSCULAR HEMOGLOBIN 29.5 pg (27.0-34.0); MEAN CORPUSCULAR HGB CONC 32.4 g/dL (33.0-35.0); MEAN CORPUSCULAR VOLUME 91.2 fL (80.0-100.0); MONOCYTES # (AUTO) 1.2 x10^3/uL (0.3-0.8); NEUTROPHILS # (AUTO) 21.5 x10^3/uL (2.2-4.8); NEUTROPHILS % (AUTO) 92.5 % (42.0-75.0); PLATELET COUNT 187 X10^3/uL (150.0-450.0); RED BLOOD COUNT 2.49 X10^6/uL (3.5-5.4); RED CELL DISTRIBUTION WIDTH 15.6 % (11.6-16.5); WHITE BLOOD COUNT 23.3 X10^3/uL (3.6-10.0)
[2017-07-28 05:21] LABS: ALANINE AMINOTRANSFERASE 9 Units/L (12-78); ALBUMIN 1.5 g/dL (3.4-5.0); ALKALINE PHOSPHATASE 82 Units/L (46-116); ASPARTATE AMINO TRANSFERASE 13 Units/L (15-37); BLOOD UREA NITROGEN 21 mg/dL (7-18); CALCIUM 7.4 mg/dL (8.5-10.1); CARBON DIOXIDE 27.8 mmol/L (21-32); CHLORIDE 97 mmol/L (98-107); COR CA(FOR HYPOALB) 9.4 mg/dL (8.5-10.1); COR NA(FOR HYPERGLY) 132 mmol/L (136-145); CREATININE 0.55 mg/dL (0.55-1.02); SODIUM 130 mmol/L (136-145); TOTAL PROTEIN 5.3 g/dL (6.4-8.2); eGFR NON BLACK RACES > 60 (>60)
[2017-07-28 05:38] LABS: HYPOCHROMASIA 1+; PLATELET MORPHOLOGY COMMENT NORMAL (NORMAL)
[2017-07-28 05:57] LABS: BAND NEUTROPHILS % 10 % (0-10)
[2017-07-28] MEDS: CLARITIN PO SCH (08:32)
[2017-07-28] MEDS: PEPCID 20 MG IV PREMIX* 20 MG/50 ML BAG IV SCH ×2 (08:35→21:13)
[2017-07-28] MEDS: LASIX PO SCH (08:35)
[2017-07-28] MEDS: VITAMIN C PO SCH (08:35)
[2017-07-28] MEDS ORDERED: POTASSIUM CHLORIDE LIQ 20 MEQ UDC ONE (08:35)
[2017-07-28] MEDS ORDERED: POTASSIUM CHLORIDE LIQ 20 MEQ UDC PO ONE (08:37)
[2017-07-28] MEDS: POTASSIUM CHLORIDE LIQ 20 MEQ UDC PO SCH (08:41)
[2017-07-28] MEDS: ZOFRAN INJ 4 MG VIAL IVP PRN (08:42)
[2017-07-28] MEDS: NS 1000 ML 1,000 ML IV SCH (10:57)
[2017-07-28 12:13] LABS: HEMATOCRIT 23.5 % (36.0-47.0); HEMOGLOBIN 7.7 g/dL (12.0-16.0)
[2017-07-28 12:47] LABS: IRON 14 ug/dL (50-175)
[2017-07-28] MEDS: MAALOX or MYLANTA PO PRN (13:20)
[2017-07-28] MEDS: TYLENOL 500 MG TAB EXTRA STRENGTH PO PRN (15:18)
[2017-07-28] MEDS: MORPHINE SULFATE INJ 2 MG INJ IVP PRN (16:47)
[2017-07-28] MEDS ORDERED: STERILE WATER IRRIGATION IR ONE (18:31)
[2017-07-28] MEDS: PriLOSEC PO SCH (21:13)
[2017-07-28] MEDS: NEURONTIN CAP 400 MG PO SCH (21:13)
[2017-07-28] MEDS: LIORESAL PO PRN (21:13)
[2017-07-28] MEDS: SULINDAC PO SCH (21:14)
[2017-07-29] MEDS: TYLENOL 500 MG TAB EXTRA STRENGTH PO PRN (04:14)
[2017-07-29 06:04] LABS: BASOPHILS # (AUTO) 0.1 X10^3/uL (0.0-0.1); BASOPHILS % (AUTO) 0.4 % (0.2-1.0); HEMATOCRIT 21.9 % (36.0-47.0); HEMOGLOBIN 7.3 g/dL (12.0-16.0); LYMPHOCYTES # (AUTO) 0.6 X10^3/uL (1.3-2.9); LYMPHOCYTES % (AUTO) 3.6 % (21.0-51.0); MEAN CORPUSCULAR HEMOGLOBIN 29.8 pg (27.0-34.0); MEAN CORPUSCULAR HGB CONC 33.2 g/dL (33.0-35.0); MEAN CORPUSCULAR VOLUME 89.7 fL (80.0-100.0); MEAN PLATELET VOLUME 8.3 fL (7.4-11.0); MONOCYTES # (AUTO) 0.7 x10^3/uL (0.3-0.8); MONOCYTES % (AUTO) 4.6 % (0.0-13.0); NEUTROPHILS # (AUTO) 14.7 x10^3/uL (2.2-4.8); NEUTROPHILS % (AUTO) 91.4 % (42.0-75.0); PLATELET COUNT 184 X10^3/uL (150.0-450.0); RED BLOOD COUNT 2.44 X10^6/uL (3.5-5.4); RED CELL DISTRIBUTION WIDTH 15.3 % (11.6-16.5); WHITE BLOOD COUNT 16.1 X10^3/uL (3.6-10.0)
[2017-07-29] MEDS: PROPAFENONE HCL PO SCH ×3 (06:07→21:02)
[2017-07-29 06:16] LABS: LACTIC ACID 0.3 mmol/L (0.4-2.0)
[2017-07-29 06:19] LABS: ALANINE AMINOTRANSFERASE 9 Units/L (12-78); ALBUMIN 1.4 g/dL (3.4-5.0); ALKALINE PHOSPHATASE 85 Units/L (46-116); ASPARTATE AMINO TRANSFERASE 11 Units/L (15-37); BLOOD UREA NITROGEN 21 mg/dL (7-18); CALCIUM 7.9 mg/dL (8.5-10.1); CARBON DIOXIDE 26.9 mmol/L (21-32); CHLORIDE 97 mmol/L (98-107); COR NA(FOR HYPERGLY) 131 mmol/L (136-145); CREATININE 0.34 mg/dL (0.55-1.02); SODIUM 131 mmol/L (136-145); TOTAL PROTEIN 5.2 g/dL (6.4-8.2); eGFR NON BLACK RACES > 60 (>60)
[2017-07-29 06:19] LABS: BAND NEUTROPHILS % 7 % (0-10)
[2017-07-29 06:20] LABS: HYPOCHROMASIA 1+; PLATELET MORPHOLOGY COMMENT NORMAL (NORMAL)
[2017-07-29] MEDS: CLARITIN PO SCH (08:43)
[2017-07-29] MEDS: POTASSIUM CHLORIDE LIQ 20 MEQ UDC PO SCH (08:44)
[2017-07-29] MEDS: PEPCID 20 MG IV PREMIX* 20 MG/50 ML BAG IV SCH ×2 (08:44→20:20)
[2017-07-29] MEDS: LASIX PO SCH (08:44)
[2017-07-29] MEDS: INVANZ INJ 1 GM VIAL 1 GM in NS 100 ML IV + SPIKE MINIBAG* 100 ML IV SCH (08:44)
[2017-07-29] MEDS: VITAMIN C PO SCH (08:44)
[2017-07-29] MEDS: NS 1000 ML 1,000 ML IV SCH (11:12)
[2017-07-29] MEDS: OFIRMEV IV 1000 MG VIAL 500 MG/50 ML VIAL IV PRN (15:55)
[2017-07-29] MEDS: NEURONTIN CAP 400 MG PO SCH (20:18)
[2017-07-29] MEDS: PriLOSEC PO SCH (20:20)
[2017-07-29] MEDS: SULINDAC PO SCH (20:20)
[2017-07-29] MEDS: DUONEB 0.5 MG/3 MG IN PRN (20:45)
[2017-07-29] MEDS: LIORESAL PO PRN (21:03)
[2017-07-30 05:31] LABS: BASOPHILS # (AUTO) 0.1 X10^3/uL (0.0-0.1); BASOPHILS % (AUTO) 0.3 % (0.2-1.0); HEMATOCRIT 24.2 % (36.0-47.0); HEMOGLOBIN 7.9 g/dL (12.0-16.0); LYMPHOCYTES # (AUTO) 0.6 X10^3/uL (1.3-2.9); LYMPHOCYTES % (AUTO) 3.7 % (21.0-51.0); MEAN CORPUSCULAR HGB CONC 32.8 g/dL (33.0-35.0); MEAN CORPUSCULAR VOLUME 91.4 fL (80.0-100.0); MEAN PLATELET VOLUME 8.9 fL (7.4-11.0); MONOCYTES # (AUTO) 0.6 x10^3/uL (0.3-0.8); MONOCYTES % (AUTO) 4.1 % (0.0-13.0); NEUTROPHILS # (AUTO) 14.1 x10^3/uL (2.2-4.8); NEUTROPHILS % (AUTO) 91.9 % (42.0-75.0); PLATELET COUNT 225 X10^3/uL (150.0-450.0); RED BLOOD COUNT 2.65 X10^6/uL (3.5-5.4); RED CELL DISTRIBUTION WIDTH 15.7 % (11.6-16.5); WHITE BLOOD COUNT 15.4 X10^3/uL (3.6-10.0)
[2017-07-30 05:46] LABS: ALANINE AMINOTRANSFERASE 10 Units/L (12-78); ALBUMIN 1.4 g/dL (3.4-5.0); ALKALINE PHOSPHATASE 88 Units/L (46-116); ASPARTATE AMINO TRANSFERASE 9 Units/L (15-37); BLOOD UREA NITROGEN 16 mg/dL (7-18); CALCIUM 8.2 mg/dL (8.5-10.1); CARBON DIOXIDE 27.6 mmol/L (21-32); CHLORIDE 102 mmol/L (98-107); COR CA(FOR HYPOALB) 10.3 mg/dL (8.5-10.1); CREATININE 0.38 mg/dL (0.55-1.02); SODIUM 137 mmol/L (136-145); TOTAL PROTEIN 5.6 g/dL (6.4-8.2); eGFR NON BLACK RACES > 60 (>60)
[2017-07-30] MEDS: PROPAFENONE HCL PO SCH ×3 (05:49→21:22)
[2017-07-30] MEDS: NS 1000 ML 1,000 ML IV SCH (05:50)
[2017-07-30 05:58] LABS: BAND NEUTROPHILS % 12 % (0-10); HYPOCHROMASIA 1+; PLATELET MORPHOLOGY COMMENT NORMAL (NORMAL)
[2017-07-30] MEDS: LASIX PO SCH (07:59)
[2017-07-30] MEDS: PEPCID 20 MG IV PREMIX* 20 MG/50 ML BAG IV SCH ×2 (07:59→21:22)
[2017-07-30] MEDS: INVANZ INJ 1 GM VIAL 1 GM in NS 100 ML IV + SPIKE MINIBAG* 100 ML IV SCH (07:59)
[2017-07-30] MEDS: POTASSIUM CHLORIDE LIQ 20 MEQ UDC PO SCH (07:59)
[2017-07-30] MEDS: CLARITIN PO SCH (07:59)
[2017-07-30] MEDS: VITAMIN C PO SCH (07:59)
[2017-07-30] MEDS: MORPHINE SULFATE INJ 2 MG INJ IVP PRN (09:58)
[2017-07-30] MEDS: TYLENOL 500 MG TAB EXTRA STRENGTH PO PRN (15:20)
[2017-07-30] MEDS: DUONEB 0.5 MG/3 MG IN PRN (16:54)
[2017-07-30] MEDS ORDERED: NS IV NR (18:00)
[2017-07-30] MEDS ORDERED: TOBRAMYCIN SULFATE IV NR (18:00)
--- NOTE | 2017-07-30 18:01 | PCM.PROG ---
Progress Note - Progress Note for Day of Date: 07/30/17 - Subjective Subjective: 76 WF ER ADMISSION WITH UTI, LEUKOCYTOSIS, SCARAL DECUBITUS, COLOSTOMY AND TRACH. PT CURRENT ON IV ATBX FOR UTI AND WOUND INFECTION. PT REQUIRES TOTAL CARE FOR ALL ADL'S. PT CO PAIN THIS AM, CURRENTLY ON IV MORPHINE , NO FAMILY AT BEDSIDE THIS AM. TALKED WITH CASE MANAGEMENT ABOUT CARE HOME PLACEMENT. - Past Medical Family Social History Past Med/Fam/Surg Hx: No changes since H&P Allergies: Allergies NOVA Inhibitors Allergy (Verified 07/26/17 13:34) fentanyl Allergy (Verified 07/26/17 13:34) lisinopril Allergy (Verified 07/26/17 13:34) - Review of Systems ROS: No change since H&P - Vital Signs and I&O's Vital Signs: Temperature 100 F Pulse Rate [Left] 99 Pulse Rate 91 Respiratory Rate 20 Blood Pressure [Left Arm] 107/53 Blood Pressure [Left Calf] 149/70 Blood Pressure [Right Calf] 113/96 Blood Pressure 99/50 O2 Sat by Pulse Oximetry 98 Intake and Output: Intake & Output 07/28/17 07/29/17 07/30/17 07/31/17 11:59 11:59 11:59 11:59 Intake Total 1953 1455 1170 480 Output Total 1000 1350 2950 850 Balance 953 077 -2370 -370 - Physical Exam Oriented: Person Eyes: Normal Ear: Normal Nose: Normal Throat: Dry Respiratory: Diminished Cardiovascular: Normal Auscultation: Bowel Sounds: Increased Tenderness: Normal Skin: Decreased Turgur, Red, Tender, Wound (STAGE IV TO SACRUM. ), Other ( COLOSTOMY WITH PINK STOMA) Musculoskeletal: Right, Left, Arm, Leg, Back:Lumbar, Motor Deficit, Sensory Deficit, Instability Psychiatric: Depression Affect: Depressed Speech Pattern: Clear, Appropriate - Laboratory and Diagnostics Result Diagrams: 07/30/17 04:18 07/30/17 04:18 Labs: 07/28/17 11:58 Blood Blood Culture - Preliminary 07/28/17 11:45 Blood Blood Culture - Preliminary 07/26/17 17:32 Leg - Left Gram Stain - Final 07/26/17 17:32 Leg - Left Wound Culture - Final Providencia Stuartii 07/26/17 13:20 Urine,Catheterized Urine Culture - Final Providencia Stuartii 07/26/17 20:07 Foot - Right Gram Stain - Final 07/26/17 20:07 Foot - Right Wound Culture - Final Methicillin Resis Staph Aureus 07/28/17 10:41 Urine,Clean Catch Urine Culture - Final 07/26/17 13:15 Blood Blood Culture - Preliminary 07/26/17 13:10 Blood Blood Culture - Preliminary 07/26/17 17:32 Sacral Gram Stain - Final 07/26/17 17:32 Sacral Wound Culture - Final Acinetobacter Baumanii/Haemoly Laboratory WBC 15.4 X10^3/uL (3.6-10.0) H 07/30/17 04:18 RBC 2.65 X10^6/uL (3.5-5.4) L 07/30/17 04:18 Hgb 7.9 g/dL (12.0-16.0) L 07/30/17 04:18 Hct 24.2 % (36.0-47.0) L 07/30/17 04:18 MCV 91.4 fL (80.0-100.0) 07/30/17 04:18 MCH 30.0 pg (27.0-34.0) 07/30/17 04:18 MCHC 32.8 g/dL (33.0-35.0) L 07/30/17 04:18 RDW 15.7 % (11.6-16.5) 07/30/17 04:18 Plt Count 225 X10^3/uL (150.0-450.0) 07/30/17 04:18 Plt Count Comment Adequate (ADEQUATE) 07/30/17 04:18 MPV 8.9 fL (7.4-11.0) 07/30/17 04:18 Neut % (Auto) 91.9 % (42.0-75.0) H 07/30/17 04:18 Lymph % (Auto) 3.7 % (21.0-51.0) L 07/30/17 04:18 [place] % (Auto) 4.1 % (0.0-13.0) 07/30/17 04:18 Eos % (Auto) 0.0 % (0.9-2.9) L 07/30/17 04:18 Baso % (Auto) 0.3 % (0.2-1.0) 07/30/17 04:18 Neut # (Auto) 14.1 x10^3/uL (2.2-4.8) H 07/30/17 04:18 Lymph # (Auto) 0.6 X10^3/uL (1.3-2.9) L 07/30/17 04:18 [place] # (Auto) 0.6 x10^3/uL (0.3-0.8) 07/30/17 04:18 Eos # (Auto) 0.0 x10^3/uL (0.0-0.2) 07/30/17 04:18 Baso # (Auto) 0.1 X10^3/uL (0.0-0.1) 07/30/17 04:18 Absolute Nucleated RBC 0.0 /100WBC 07/30/17 04:18 Total Counted 100 07/30/17 04:18 Neutrophils % (Manual) 79 % (39-76) H 07/30/17 04:18 Band Neutrophils % 12 % (0-10) H 07/30/17 04:18 Lymphocytes % (Manual) 5 % (13-43) L 07/30/17 04:18 Monocytes % (Manual) 4 % (4-9) 07/30/17 04:18 Eosinophils % (Manual) 0 % (0-6) 07/28/17 04:10 Plt Morphology Comment Normal (NORMAL) 07/30/17 04:18 RBC Morphology Abnormal (NORMAL) A 07/30/17 04:18 Hypochromasia 1+ A 07/30/17 04:18 Sodium 137 mmol/L (136-145) 07/30/17 04:18 Corrected Sodium TNP 07/30/17 04:18 Potassium 3.7 mmol/L (3.5-5.1) 07/30/17 04:18 Chloride 102 mmol/L (98-107) 07/30/17 04:18 Carbon Dioxide 27.6 mmol/L (21-32) 07/30/17 04:18 BUN 16 mg/dL (7-18) 07/30/17 04:18 Creatinine 0.38 mg/dL (0.55-1.02) L 07/30/17 04:18 Est GFR (MDRD) Af Amer > 60 (>60) 07/30/17 04:18 Est GFR (MDRD) Non-Af > 60 (>60) 07/30/17 04:18 Glucose 92 mg/dL (65-99) 07/30/17 04:18 Lactic Acid 0.3 mmol/L (0.4-2.0) L 07/29/17 05:35 Calcium 8.2 mg/dL (8.5-10.1) L 07/30/17 04:18 Corrected Calcium 10.3 mg/dL (8.5-10.1) H 07/30/17 04:18 Iron 14 ug/dL (50-175) L 07/28/17 11:58 Transferrin 64 mg/dL (202-364) L 07/28/17 11:58 Ferritin 2863 ng/mL (8-252) H 07/28/17 11:58 Total Bilirubin 0.50 mg/dL (0.2-1.0) 07/30/17 04:18 AST 9 Units/L (15-37) L 07/30/17 04:18 ALT 10 Units/L (12-78) L 07/30/17 04:18 Alkaline Phosphatase 88 Units/L (46-116) 07/30/17 04:18 Creatine Kinase 18 Units/L (26-192) L 07/26/17 19:36 CK-MB (CK-2) < 1.0 ng/mL (0-4.0) 07/26/17 19:36 CK/CKMB % Calc 5.6 % (<4) 07/26/17 19:36 Troponin I 0.02 ng/mL (0-1.5) 07/26/17 19:36 C-Reactive Protein 178.80 mg/L (0-3.0) H 07/26/17 13:15 Total Protein 5.6 g/dL (6.4-8.2) L 07/30/17 04:18 Albumin 1.4 g/dL (3.4-5.0) L 07/30/17 04:18 Globulin 4.2 g/dL (2.5-4.5) 07/30/17 04:18 Albumin/Globulin Ratio 0.3 Ratio (1.1-2.1) L 07/30/17 04:18 Vitamin B12 > 2000 pg/mL (193-986) H 07/28/17 11:58 Folate > 20.0 ng/mL (>8.6) 07/28/17 11:58 Specimen Type Catherized urine 07/27/17 05:48 Urine Color Gela (YELLOW) 07/27/17 05:48 Urine Appearance Slightly hazy (CLEAR) 07/27/17 05:48 Urine pH 5.0 (5.0 - 8.0) 07/27/17 05:48 Ur Specific [place] 1.020 (1.000-1.030) 07/27/17 05:48 Urine Protein 2+ (NEGATIVE) 07/27/17 05:48 Urine Glucose (UA) Negative (NEGATIVE) 07/27/17 05:48 Urine Ketones 4+ (NEGATIVE) 07/27/17 05:48 Urine Occult Blood 3+ (NEGATIVE) 07/27/17 05:48 Urine Nitrite Positive (NEGATIVE) 07/27/17 05:48 Urine Bilirubin 1+ (NEGATIVE) 07/27/17 05:48 Urine Urobilinogen 2+ (NORMAL) 07/27/17 05:48 Ur Leukocyte Esterase 2+ (NEGATIVE) 07/27/17 05:48 Urine RBC 20-30 /HPF (NONE SEEN) 07/27/17 05:48 Urine WBC 20-30 /HPF (NONE SEEN) 07/27/17 05:48 Ur Squamous Epith Cells Rare /HPF (NEGATIVE) 07/27/17 05:48 Urine Bacteria Trace /HPF (NEGATIVE) 07/27/17 05:48 Hyaline Casts Few /LPF (NEGATIVE) 07/26/17 13:20 Urine Mucus Few /HPF (NEGATIVE) 07/27/17 05:48 Ur Culture Indicated? Yes/culture set up 07/27/17 05:48 - Plan (1) UTI (urinary tract infection) Status: Acute Plan: CONTINUE IV ATBX. SEE CULTURE RESPORT, AM LABS. BLOOD PRESSURE AND BS CONTROL. GENTLE HYDRATION, WOUND CARE. CONTINUE TRACH CARE AND COLOSTOMY CARE. PAIN CONTROL, AFTT- CARE HOME PLACEMENT, TOTAL CARE FOR ALL ADL'S (2) Decubitus skin ulcer Status: Chronic (3) Colostomy in place Status: Acute (4) Tracheostomy in place Status: Acute (5) Dehydration, mild Status: Acute (6) Generalized weakness Status: Acute (7) Arthritis Status: Chronic (8) CHF (congestive heart failure) Status: Chronic (9) Diabetes Status: Chronic (10) GERD (gastroesophageal reflux disease) Status: Chronic (11) Guillain-Delta Status: Chronic (12) HTN (hypertension) Status: Chronic
--- NOTE | 2017-07-30 18:31 | RAD ---
HISTORY: Shortness of breath, CHF Study: Single view chest Comparison: 07/26/2017 Findings: Single portable view is submitted. Stable tracheostomy. There is chronic elevation of the right hemid iaphragm with bibasilar atelectasis. Small bilateral effusions are suspected. Dual-chamber pacemaker and cervical fusion hardware noted. No infiltrate or pneumothorax identified IMPRESSION: 1. Small bibasilar effusions are suspected. No airspace disease identified. Reported By:
[2017-07-30] MEDS: SULINDAC PO SCH (21:22)
[2017-07-30] MEDS: PriLOSEC PO SCH (21:22)
[2017-07-30] MEDS: NEURONTIN CAP 400 MG PO SCH (21:22)
[2017-07-31] MEDS: PROPAFENONE HCL PO SCH ×2 (05:29→14:26)
[2017-07-31] MEDS: NS 1000 ML 1,000 ML IV SCH ×3 (05:30→10:53)
[2017-07-31 05:54] LABS: BASOPHILS % (AUTO) 0.4 % (0.2-1.0); EOSINOPHILS # (AUTO) 0.1 x10^3/uL (0.0-0.2); EOSINOPHILS % (AUTO) 0.5 % (0.9-2.9); HEMATOCRIT 20.5 % (36.0-47.0); LYMPHOCYTES # (AUTO) 0.8 X10^3/uL (1.3-2.9); LYMPHOCYTES % (AUTO) 6.7 % (21.0-51.0); MEAN CORPUSCULAR HEMOGLOBIN 30.1 pg (27.0-34.0); MEAN CORPUSCULAR HGB CONC 32.7 g/dL (33.0-35.0); MEAN CORPUSCULAR VOLUME 92.2 fL (80.0-100.0); MEAN PLATELET VOLUME 8.6 fL (7.4-11.0); MONOCYTES # (AUTO) 0.6 x10^3/uL (0.3-0.8); MONOCYTES % (AUTO) 4.8 % (0.0-13.0); NEUTROPHILS # (AUTO) 10.6 x10^3/uL (2.2-4.8); NEUTROPHILS % (AUTO) 87.6 % (42.0-75.0); PLATELET COUNT 201 X10^3/uL (150.0-450.0); RED BLOOD COUNT 2.22 X10^6/uL (3.5-5.4); RED CELL DISTRIBUTION WIDTH 15.6 % (11.6-16.5); WHITE BLOOD COUNT 12.1 X10^3/uL (3.6-10.0)
[2017-07-31 06:11] LABS: HEMOGLOBIN 6.7 g/dL (12.0-16.0)
[2017-07-31 06:13] LABS: ALANINE AMINOTRANSFERASE 8 Units/L (12-78); ALBUMIN 1.3 g/dL (3.4-5.0); ALKALINE PHOSPHATASE 76 Units/L (46-116); ASPARTATE AMINO TRANSFERASE 18 Units/L (15-37); BLOOD UREA NITROGEN 13 mg/dL (7-18); CALCIUM 7.9 mg/dL (8.5-10.1); CARBON DIOXIDE 27.7 mmol/L (21-32); CHLORIDE 104 mmol/L (98-107); COR CA(FOR HYPOALB) 10.1 mg/dL (8.5-10.1); CREATININE 0.34 mg/dL (0.55-1.02); SODIUM 138 mmol/L (136-145); eGFR NON BLACK RACES > 60 (>60)
[2017-07-31] MEDS ORDERED: NS 500 ML IV 500 ML IV ONE (09:18)
[2017-07-31] MEDS ORDERED: BENADRYL INJ 50 MG VIAL IVP PRN (09:18)
[2017-07-31] MEDS: DUONEB 0.5 MG/3 MG IN PRN (09:39)
[2017-07-31] MEDS: CLARITIN PO SCH (10:13)
[2017-07-31] MEDS: POTASSIUM CHLORIDE LIQ 20 MEQ UDC PO SCH (10:14)
[2017-07-31] MEDS: LASIX PO SCH (10:14)
[2017-07-31] MEDS: VITAMIN C PO SCH (10:14)
[2017-07-31] MEDS: PEPCID 20 MG IV PREMIX* 20 MG/50 ML BAG IV SCH ×2 (10:14→23:45)
[2017-07-31] MEDS: INVANZ INJ 1 GM VIAL 1 GM in NS 100 ML IV + SPIKE MINIBAG* 100 ML IV SCH (10:15)
[2017-07-31] MEDS: AMIKACIN SULFATE IV SCH (14:01)
[2017-07-31] MEDS: NS IV SCH (14:01)
[2017-07-31] MEDS: TYLENOL 500 MG TAB EXTRA STRENGTH PO PRN (17:19)
--- NOTE | 2017-07-31 17:45 | PCM.PROG ---
Progress Note - Progress Note for Day of Date: 07/31/17 - Subjective Subjective: 76 WF ER ADMISSION WITH UTI, LEUKOCYTOSIS, SCARAL DECUBITUS, COLOSTOMY AND TRACH. PT CURRENT ON IV ATBX FOR UTI AND WOUND INFECTION. PT REQUIRES TOTAL CARE FOR ALL ADL'S. PT CO PAIN THIS AM, CURRENTLY ON IV MORPHINE , NO FAMILY AT BEDSIDE THIS AM. TALKED WITH CASE MANAGEMENT ABOUT INTERMEDIATE PLACEMENT. PT HGB 6.7, PT STATES SHE HAS HAD TO GET BLOOD TRANSFUSIONS MULTIPLE TIMES. PLAN TO TYPE AND SCREEEN AND TRANSFUSE. CXR THIS AM - Past Medical Family Social History Past Med/Fam/Surg Hx: No changes since H&P Allergies: Allergies NOVA Inhibitors Allergy (Verified 07/26/17 13:34) fentanyl Allergy (Verified 07/26/17 13:34) lisinopril Allergy (Verified 07/26/17 13:34) - Review of Systems ROS: No change since H&P - Vital Signs and I&O's Vital Signs: Temperature 99.3 F Pulse Rate [Left] 90 Pulse Rate 84 Respiratory Rate 18 Blood Pressure [Left Arm] 86/51 Blood Pressure [Left Calf] 149/70 Blood Pressure [Right Calf] 113/96 Blood Pressure 99/50 O2 Sat by Pulse Oximetry 99 Intake and Output: Intake & Output 07/29/17 07/30/17 07/31/17 08/01/17 11:59 11:59 11:59 11:59 Intake Total 1455 1170 1016 460 Output Total 1350 2950 1650 500 Balance 105 -1780 -634 -40 - Physical Exam Oriented: Person Eyes: Normal Ear: Normal Nose: Normal Throat: Dry Respiratory: Diminished Cardiovascular: Normal Auscultation: Bowel Sounds: Increased Tenderness: Normal Skin: Decreased Turgur, Red, Tender, Wound (STAGE IV TO SACRUM. ), Other ( COLOSTOMY WITH PINK STOMA) Musculoskeletal: Right, Left, Arm, Leg, Back:Lumbar, Motor Deficit, Sensory Deficit, Instability Psychiatric: Depression Affect: Depressed Speech Pattern: Clear, Appropriate - Laboratory and Diagnostics Result Diagrams: 07/31/17 05:20 07/31/17 05:20 Labs: 07/26/17 13:15 Blood Blood Culture - Final 07/26/17 13:10 Blood Blood Culture - Final 07/28/17 11:58 Blood Blood Culture - Preliminary 07/28/17 11:45 Blood Blood Culture - Preliminary 07/26/17 17:32 Leg - Left Gram Stain - Final 07/26/17 17:32 Leg - Left Wound Culture - Final Providencia Stuartii 07/26/17 13:20 Urine,Catheterized Urine Culture - Final Providencia Stuartii 07/26/17 20:07 Foot - Right Gram Stain - Final 07/26/17 20:07 Foot - Right Wound Culture - Final Methicillin Resis Staph Aureus 07/28/17 10:41 Urine,Clean Catch Urine Culture - Final 07/26/17 17:32 Sacral Gram Stain - Final 07/26/17 17:32 Sacral Wound Culture - Final Acinetobacter Baumanii/Haemoly Laboratory WBC 12.1 X10^3/uL (3.6-10.0) H 07/31/17 05:20 RBC 2.22 X10^6/uL (3.5-5.4) L 07/31/17 05:20 Hgb 6.7 g/dL (12.0-16.0) L* 07/31/17 05:20 Hct 20.5 % (36.0-47.0) L 07/31/17 05:20 MCV 92.2 fL (80.0-100.0) 07/31/17 05:20 MCH 30.1 pg (27.0-34.0) 07/31/17 05:20 MCHC 32.7 g/dL (33.0-35.0) L 07/31/17 05:20 RDW 15.6 % (11.6-16.5) 07/31/17 05:20 Plt Count 201 X10^3/uL (150.0-450.0) 07/31/17 05:20 Plt Count Comment Adequate (ADEQUATE) 07/30/17 04:18 MPV 8.6 fL (7.4-11.0) 07/31/17 05:20 Neut % (Auto) 87.6 % (42.0-75.0) H 07/31/17 05:20 Lymph % (Auto) 6.7 % (21.0-51.0) L 07/31/17 05:20 [place] % (Auto) 4.8 % (0.0-13.0) 07/31/17 05:20 Eos % (Auto) 0.5 % (0.9-2.9) L 07/31/17 05:20 Baso % (Auto) 0.4 % (0.2-1.0) 07/31/17 05:20 Neut # (Auto) 10.6 x10^3/uL (2.2-4.8) H 07/31/17 05:20 Lymph # (Auto) 0.8 X10^3/uL (1.3-2.9) L 07/31/17 05:20 [place] # (Auto) 0.6 x10^3/uL (0.3-0.8) 07/31/17 05:20 Eos # (Auto) 0.1 x10^3/uL (0.0-0.2) 07/31/17 05:20 Baso # (Auto) 0.0 X10^3/uL (0.0-0.1) 07/31/17 05:20 Absolute Nucleated RBC 0.0 /100WBC 07/31/17 05:20 Total Counted 100 07/30/17 04:18 Neutrophils % (Manual) 79 % (39-76) H 07/30/17 04:18 Band Neutrophils % 12 % (0-10) H 07/30/17 04:18 Lymphocytes % (Manual) 5 % (13-43) L 07/30/17 04:18 Monocytes % (Manual) 4 % (4-9) 07/30/17 04:18 Eosinophils % (Manual) 0 % (0-6) 07/28/17 04:10 Plt Morphology Comment Normal (NORMAL) 07/30/17 04:18 RBC Morphology Abnormal (NORMAL) A 07/30/17 04:18 Hypochromasia 1+ A 07/30/17 04:18 Sodium 138 mmol/L (136-145) 07/31/17 05:20 Corrected Sodium TNP 07/31/17 05:20 Potassium 3.9 mmol/L (3.5-5.1) 07/31/17 05:20 Chloride 104 mmol/L (98-107) 07/31/17 05:20 Carbon Dioxide 27.7 mmol/L (21-32) 07/31/17 05:20 BUN 13 mg/dL (7-18) 07/31/17 05:20 Creatinine 0.34 mg/dL (0.55-1.02) L 07/31/17 05:20 Est GFR (MDRD) Af Amer > 60 (>60) 07/31/17 05:20 Est GFR (MDRD) Non-Af > 60 (>60) 07/31/17 05:20 Glucose 100 mg/dL (65-99) H 07/31/17 05:20 Lactic Acid 0.3 mmol/L (0.4-2.0) L 07/29/17 05:35 Calcium 7.9 mg/dL (8.5-10.1) L 07/31/17 05:20 Corrected Calcium 10.1 mg/dL (8.5-10.1) 07/31/17 05:20 Iron 14 ug/dL (50-175) L 07/28/17 11:58 Transferrin 64 mg/dL (202-364) L 07/28/17 11:58 Ferritin 2863 ng/mL (8-252) H 07/28/17 11:58 Total Bilirubin 0.30 mg/dL (0.2-1.0) 07/31/17 05:20 AST 18 Units/L (15-37) 07/31/17 05:20 ALT 8 Units/L (12-78) L 07/31/17 05:20 Alkaline Phosphatase 76 Units/L (46-116) 07/31/17 05:20 Creatine Kinase 18 Units/L (26-192) L 07/26/17 19:36 CK-MB (CK-2) < 1.0 ng/mL (0-4.0) 07/26/17 19:36 CK/CKMB % Calc 5.6 % (<4) 07/26/17 19:36 Troponin I 0.02 ng/mL (0-1.5) 07/26/17 19:36 C-Reactive Protein 178.80 mg/L (0-3.0) H 07/26/17 13:15 Total Protein 5.0 g/dL (6.4-8.2) L 07/31/17 05:20 Albumin 1.3 g/dL (3.4-5.0) L 07/31/17 05:20 Globulin 3.7 g/dL (2.5-4.5) 07/31/17 05:20 Albumin/Globulin Ratio 0.4 Ratio (1.1-2.1) L 07/31/17 05:20 Vitamin B12 > 2000 pg/mL (193-986) H 07/28/17 11:58 Folate > 20.0 ng/mL (>8.6) 07/28/17 11:58 Specimen Type Catherized urine 07/27/17 05:48 Urine Color [place]ela (YELLOW) 07/27/17 05:48 Urine Appearance Slightly hazy (CLEAR) 07/27/17 05:48 Urine pH 5.0 (5.0 - 8.0) 07/27/17 05:48 Ur Specific [place] 1.020 (1.000-1.030) 07/27/17 05:48 Urine Protein 2+ (NEGATIVE) 07/27/17 05:48 Urine Glucose (UA) Negative (NEGATIVE) 07/27/17 05:48 Urine Ketones 4+ (NEGATIVE) 07/27/17 05:48 Urine Occult Blood 3+ (NEGATIVE) 07/27/17 05:48 Urine Nitrite Positive (NEGATIVE) 07/27/17 05:48 Urine Bilirubin 1+ (NEGATIVE) 07/27/17 05:48 Urine Urobilinogen 2+ (NORMAL) 07/27/17 05:48 Ur Leukocyte Esterase 2+ (NEGATIVE) 07/27/17 05:48 Urine RBC 20-30 /HPF (NONE SEEN) 07/27/17 05:48 Urine WBC 20-30 /HPF (NONE SEEN) 07/27/17 05:48 Ur Squamous Epith Cells Rare /HPF (NEGATIVE) 07/27/17 05:48 Urine Bacteria Trace /HPF (NEGATIVE) 07/27/17 05:48 Hyaline Casts Few /LPF (NEGATIVE) 07/26/17 13:20 Urine Mucus Few /HPF (NEGATIVE) 07/27/17 05:48 Ur Culture Indicated? Yes/culture set up 07/27/17 05:48 Blood Type O POSITIVE 07/31/17 09:35 Antibody Screen Negative 07/31/17 09:35 Crossmatch See Detail 07/31/17 09:35 - Plan (1) UTI (urinary tract infection) Status: Acute Plan: CONTINUE IV ATBX. SEE CULTURE RESPORT, AM LABS. BLOOD PRESSURE AND BS CONTROL. 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 TYPE AND SCREEN AND TRANSFUSE 2 UNITS PRBC. LASIX IV FOLLOWING FIRST UNIT, REPEAT AM CBC AND CHEST XRAY
[2017-07-31] MEDS ORDERED: LASIX IVP ONE (19:52)
[2017-07-31] MEDS: NEURONTIN CAP 400 MG PO SCH (21:40)
[2017-07-31] MEDS: PriLOSEC PO SCH (21:45)
[2017-07-31] MEDS: SULINDAC PO SCH (21:45)
[2017-08-01] MEDS: PROPAFENONE HCL PO SCH ×4 (01:27→21:00)
[2017-08-01] MEDS ORDERED: LASIX ONE (01:55)
[2017-08-01] MEDS ORDERED: NS 250 ML IV 250 ML IV ONE (02:55)
[2017-08-01] MEDS: TYLENOL 500 MG TAB EXTRA STRENGTH PO PRN (03:05)
--- NOTE | 2017-08-01 07:34 | RAD ---
HISTORY: Shortness of breath Study: Chest AP portable Comparison: 07/30/2017 Findings: The patient is rotated to the left. There is a pacemaker present on the left. There is a tracheostomy tube in good position. The right PICC line tip is in the superior vena cava. The heart is within nor mal limits in size. No congestive heart failure is noted. The lungs are hypo inflated. Bilateral pleu ral effusions are suspected. No definite infiltrates are identified. IMPRESSION: Hypo inflation Suspect bilateral pleural effusions Reported By:
[2017-08-01 08:15] LABS: BASOPHILS # (AUTO) 0.1 X10^3/uL (0.0-0.1); BASOPHILS % (AUTO) 0.6 % (0.2-1.0); EOSINOPHILS # (AUTO) 0.1 x10^3/uL (0.0-0.2); EOSINOPHILS % (AUTO) 1.1 % (0.9-2.9); HEMATOCRIT 27.5 % (36.0-47.0); LYMPHOCYTES # (AUTO) 0.9 X10^3/uL (1.3-2.9); LYMPHOCYTES % (AUTO) 7.4 % (21.0-51.0); MEAN CORPUSCULAR HEMOGLOBIN 30.2 pg (27.0-34.0); MEAN CORPUSCULAR HGB CONC 33.6 g/dL (33.0-35.0); MEAN CORPUSCULAR VOLUME 89.9 fL (80.0-100.0); MEAN PLATELET VOLUME 8.2 fL (7.4-11.0); MONOCYTES # (AUTO) 0.5 x10^3/uL (0.3-0.8); MONOCYTES % (AUTO) 3.9 % (0.0-13.0); NEUTROPHILS # (AUTO) 10.8 x10^3/uL (2.2-4.8); PLATELET COUNT 229 X10^3/uL (150.0-450.0); RED BLOOD COUNT 3.05 X10^6/uL (3.5-5.4); RED CELL DISTRIBUTION WIDTH 15.8 % (11.6-16.5); WHITE BLOOD COUNT 12.4 X10^3/uL (3.6-10.0)
[2017-08-01 08:17] LABS: HEMOGLOBIN 9.2 g/dL (12.0-16.0)
[2017-08-01 08:28] LABS: ALANINE AMINOTRANSFERASE 11 Units/L (12-78); ALBUMIN 1.4 g/dL (3.4-5.0); ALKALINE PHOSPHATASE 80 Units/L (46-116); ASPARTATE AMINO TRANSFERASE 7 Units/L (15-37); BLOOD UREA NITROGEN 10 mg/dL (7-18); CALCIUM 8.3 mg/dL (8.5-10.1); CARBON DIOXIDE 30.6 mmol/L (21-32); CHLORIDE 104 mmol/L (98-107); COR CA(FOR HYPOALB) 10.4 mg/dL (8.5-10.1); CREATININE 0.34 mg/dL (0.55-1.02); SODIUM 139 mmol/L (136-145); TOTAL PROTEIN 5.4 g/dL (6.4-8.2); eGFR NON BLACK RACES > 60 (>60)
[2017-08-01] MEDS: LASIX PO SCH (09:25)
[2017-08-01] MEDS: CLARITIN PO SCH (09:25)
[2017-08-01] MEDS: VITAMIN C PO SCH (09:25)
[2017-08-01] MEDS: POTASSIUM CHLORIDE LIQ 20 MEQ UDC PO SCH (09:26)
[2017-08-01] MEDS: INVANZ INJ 1 GM VIAL 1 GM in NS 100 ML IV + SPIKE MINIBAG* 100 ML IV SCH (09:26)
[2017-08-01] MEDS: NS IV SCH (10:53)
[2017-08-01] MEDS: AMIKACIN SULFATE IV SCH (10:53)
[2017-08-01] MEDS: PROTONIX INJ 40 MG VIAL IVP SCH (11:10)
[2017-08-01] MEDS: NS 1000 ML 1,000 ML IV SCH (13:55)
[2017-08-01] MEDS: MORPHINE SULFATE INJ 2 MG INJ IVP PRN (14:55)
--- NOTE | 2017-08-01 18:32 | PCM.PROG ---
Progress Note - Progress Note for Day of Date: 08/01/17 - Subjective Subjective: 76 WF ER ADMISSION WITH UTI, LEUKOCYTOSIS, SCARAL DECUBITUS, COLOSTOMY AND TRACH. PT CURRENT ON IV ATBX FOR UTI AND WOUND INFECTION. PT REQUIRES TOTAL CARE FOR ALL ADL'S. PT CO PAIN THIS AM, CURRENTLY ON IV MORPHINE , NO FAMILY AT BEDSIDE THIS AM. TALKED WITH CASE MANAGEMENT ABOUT [facility] PLACEMENT. HGB IMPROVED THIS AM 9.2 FROM 6.7 ON 07/31. PT IS S/P TRANSFUSION 2 UNITS PRBC, FEELS BETTER THIS AM, CONTINUES TO CO PAIN. - Past Medical Family Social History Past Med/Fam/Surg Hx: No changes since H&P Allergies: Allergies NOVA Inhibitors Allergy (Verified 07/26/17 13:34) fentanyl Allergy (Verified 07/26/17 13:34) lisinopril Allergy (Verified 07/26/17 13:34) - Review of Systems ROS: No change since H&P - Vital Signs and I&O's Vital Signs: Temperature 98.3 F Pulse Rate [Left] 94 Pulse Rate 84 Respiratory Rate 18 Blood Pressure [Left Arm] 122/59 Blood Pressure [Left Calf] 149/70 Blood Pressure [Right Calf] 113/96 Blood Pressure 99/50 O2 Sat by Pulse Oximetry 100 Intake and Output: Intake & Output 07/30/17 07/31/17 08/01/17 08/02/17 11:59 11:59 11:59 11:59 Intake Total 1170 1016 1580 315 Output Total 2950 1650 2700 2150 [facility] -[phone] [phone] -1835 - Physical Exam Oriented: Person Eyes: Normal Ear: Normal Nose: Normal Throat: Dry Respiratory: Diminished Cardiovascular: Normal Auscultation: Bowel Sounds: Increased Tenderness: Normal Skin: Decreased Turgur, Red, Tender, Wound (STAGE IV TO SACRUM. ), Other ( COLOSTOMY WITH PINK STOMA) Musculoskeletal: Right, Left, Arm, Leg, Back:Lumbar, Motor Deficit, Sensory Deficit, Instability Psychiatric: Depression Affect: Depressed Speech Pattern: Clear, Appropriate - Laboratory and Diagnostics Result Diagrams: 08/01/17 07:46 08/01/17 07:46 Labs: 07/26/17 13:15 Blood Blood Culture - Final 07/26/17 13:10 Blood Blood Culture - Final 07/28/17 11:58 Blood Blood Culture - Preliminary 07/28/17 11:45 Blood Blood Culture - Preliminary 07/26/17 17:32 Leg - Left Gram Stain - Final 07/26/17 17:32 Leg - Left Wound Culture - Final Providencia Stuartii 07/26/17 13:20 Urine,Catheterized Urine Culture - Final Providencia Stuartii 07/26/17 20:07 Foot - Right Gram Stain - Final 07/26/17 20:07 Foot - Right Wound Culture - Final Methicillin Resis Staph Aureus 07/28/17 10:41 Urine,Clean Catch Urine Culture - Final 07/26/17 17:32 Sacral Gram Stain - Final 07/26/17 17:32 Sacral Wound Culture - Final Acinetobacter Baumanii/Haemoly Laboratory WBC 12.4 X10^3/uL (3.6-10.0) H 08/01/17 07:46 RBC 3.05 X10^6/uL (3.5-5.4) L 08/01/17 07:46 Hgb 9.2 g/dL (12.0-16.0) L D 08/01/17 07:46 Hct 27.5 % (36.0-47.0) L 08/01/17 07:46 MCV 89.9 fL (80.0-100.0) 08/01/17 07:46 MCH 30.2 pg (27.0-34.0) 08/01/17 07:46 MCHC 33.6 g/dL (33.0-35.0) 08/01/17 07:46 RDW 15.8 % (11.6-16.5) 08/01/17 07:46 Plt Count 229 X10^3/uL (150.0-450.0) 08/01/17 07:46 Plt Count Comment Adequate (ADEQUATE) 07/30/17 04:18 MPV 8.2 fL (7.4-11.0) 08/01/17 07:46 Neut % (Auto) 87.0 % (42.0-75.0) H 08/01/17 07:46 Lymph % (Auto) 7.4 % (21.0-51.0) L 08/01/17 07:46 [place] % (Auto) 3.9 % (0.0-13.0) 08/01/17 07:46 Eos % (Auto) 1.1 % (0.9-2.9) 08/01/17 07:46 Baso % (Auto) 0.6 % (0.2-1.0) 08/01/17 07:46 Neut # (Auto) 10.8 x10^3/uL (2.2-4.8) H 08/01/17 07:46 Lymph # (Auto) 0.9 X10^3/uL (1.3-2.9) L 08/01/17 07:46 [place] # (Auto) 0.5 x10^3/uL (0.3-0.8) 08/01/17 07:46 Eos # (Auto) 0.1 x10^3/uL (0.0-0.2) 08/01/17 07:46 Baso # (Auto) 0.1 X10^3/uL (0.0-0.1) 08/01/17 07:46 Absolute Nucleated RBC 0.0 /100WBC 08/01/17 07:46 Total Counted 100 07/30/17 04:18 Neutrophils % (Manual) 79 % (39-76) H 07/30/17 04:18 Band Neutrophils % 12 % (0-10) H 07/30/17 04:18 Lymphocytes % (Manual) 5 % (13-43) L 07/30/17 04:18 Monocytes % (Manual) 4 % (4-9) 07/30/17 04:18 Eosinophils % (Manual) 0 % (0-6) 07/28/17 04:10 Plt Morphology Comment Normal (NORMAL) 07/30/17 04:18 RBC Morphology Abnormal (NORMAL) A 07/30/17 04:18 Hypochromasia 1+ A 07/30/17 04:18 Sodium 139 mmol/L (136-145) 08/01/17 07:46 Corrected Sodium TNP 08/01/17 07:46 Potassium 3.5 mmol/L (3.5-5.1) 08/01/17 07:46 Chloride 104 mmol/L (98-107) 08/01/17 07:46 Carbon Dioxide 30.6 mmol/L (21-32) 08/01/17 07:46 BUN 10 mg/dL (7-18) 08/01/17 07:46 Creatinine 0.34 mg/dL (0.55-1.02) L 08/01/17 07:46 Est GFR (MDRD) Af Amer > 60 (>60) 08/01/17 07:46 Est GFR (MDRD) Non-Af > 60 (>60) 08/01/17 07:46 Glucose 102 mg/dL (65-99) H 08/01/17 07:46 Lactic Acid 0.3 mmol/L (0.4-2.0) L 07/29/17 05:35 Calcium 8.3 mg/dL (8.5-10.1) L 08/01/17 07:46 Corrected Calcium 10.4 mg/dL (8.5-10.1) H 08/01/17 07:46 Iron 14 ug/dL (50-175) L 07/28/17 11:58 Transferrin 64 mg/dL (202-364) L 07/28/17 11:58 Ferritin 2863 ng/mL (8-252) H 07/28/17 11:58 Total Bilirubin 0.40 mg/dL (0.2-1.0) 08/01/17 07:46 AST 7 Units/L (15-37) L 08/01/17 07:46 ALT 11 Units/L (12-78) L 08/01/17 07:46 Alkaline Phosphatase 80 Units/L (46-116) 08/01/17 07:46 Creatine Kinase 18 Units/L (26-192) L 07/26/17 19:36 CK-MB (CK-2) < 1.0 ng/mL (0-4.0) 07/26/17 19:36 CK/CKMB % Calc 5.6 % (<4) 07/26/17 19:36 Troponin I 0.02 ng/mL (0-1.5) 07/26/17 19:36 C-Reactive Protein 178.80 mg/L (0-3.0) H 07/26/17 13:15 Total Protein 5.4 g/dL (6.4-8.2) L 08/01/17 07:46 Albumin 1.4 g/dL (3.4-5.0) L 08/01/17 07:46 Globulin 4.0 g/dL (2.5-4.5) 08/01/17 07:46 Albumin/Globulin Ratio 0.4 Ratio (1.1-2.1) L 08/01/17 07:46 Vitamin B12 > 2000 pg/mL (193-986) H 07/28/17 11:58 Folate > 20.0 ng/mL (>8.6) 07/28/17 11:58 Specimen Type Catherized urine 07/27/17 05:48 Urine Color [place] (YELLOW) 07/27/17 05:48 Urine Appearance Slightly hazy (CLEAR) 07/27/17 05:48 Urine pH 5.0 (5.0 - 8.0) 07/27/17 05:48 Ur Specific [place] 1.020 (1.000-1.030) 07/27/17 05:48 Urine Protein 2+ (NEGATIVE) 07/27/17 05:48 Urine Glucose (UA) Negative (NEGATIVE) 07/27/17 05:48 Urine Ketones 4+ (NEGATIVE) 07/27/17 05:48 Urine Occult Blood 3+ (NEGATIVE) 07/27/17 05:48 Urine Nitrite Positive (NEGATIVE) 07/27/17 05:48 Urine Bilirubin 1+ (NEGATIVE) 07/27/17 05:48 Urine Urobilinogen 2+ (NORMAL) 07/27/17 05:48 Ur Leukocyte Esterase 2+ (NEGATIVE) 07/27/17 05:48 Urine RBC 20-30 /HPF (NONE SEEN) 07/27/17 05:48 Urine WBC 20-30 /HPF (NONE SEEN) 07/27/17 05:48 Ur Squamous Epith Cells Rare /HPF (NEGATIVE) 07/27/17 05:48 Urine Bacteria Trace /HPF (NEGATIVE) 07/27/17 05:48 Hyaline Casts Few /LPF (NEGATIVE) 07/26/17 13:20 Urine Mucus Few /HPF (NEGATIVE) 07/27/17 05:48 Ur Culture Indicated? Yes/culture set up 07/27/17 05:48 Blood Type O POSITIVE 07/31/17 09:35 Antibody Screen Negative 07/31/17 09:35 Crossmatch See Detail 07/31/17 09:35 - Plan (1) UTI (urinary tract infection) Status: Acute Plan: CONTINUE IV ATBX. SEE CULTURE RESPORT, AM LABS. BLOOD PRESSURE AND BS CONTROL. GENTLE HYDRATION (2) Decubitus skin ulcer Status: Chronic Plan: WOUND CARE, IV ATBX (3) Colostomy in place Status: Acute Plan: COLOSTOMY CARE (4) Tracheostomy in place Status: Acute (5) Dehydration, mild Status: Acute (6) Generalized weakness Status: Acute (7) Arthritis Status: Chronic (8) CHF (congestive heart failure) Status: Chronic (9) Diabetes Status: Chronic Plan: BLOOD SUGAR MONITORING (10) GERD (gastroesophageal reflux disease) Status: Chronic (11) Guillain-[place] Status: Chronic Plan: SUPPORTIVE CARE (12) HTN (hypertension) Status: Chronic (13) Anemia Status: Acute Plan: ANEMIA PANEL, OCCULT STOOL OBTAINED. S/P TRANSFUSE 2 UNITS PRBC, REPEAT AM CBC
[2017-08-01] MEDS: NEURONTIN CAP 400 MG PO SCH (21:00)
[2017-08-01] MEDS: SULINDAC PO SCH (21:40)
[2017-08-02] MEDS ORDERED: NS IRRIGATION 500 ML IR ONE (04:35)
[2017-08-02] MEDS ORDERED: STERILE WATER IRRIGATION IR ONE (14:08)
[2017-08-02 14:09] LABS: ALANINE AMINOTRANSFERASE 10 Units/L (12-78); ALBUMIN 1.3 g/dL (3.4-5.0); ALKALINE PHOSPHATASE 79 Units/L (46-116); ASPARTATE AMINO TRANSFERASE 12 Units/L (15-37); BLOOD UREA NITROGEN 6 mg/dL (7-18); CALCIUM 7.7 mg/dL (8.5-10.1); CARBON DIOXIDE 27.9 mmol/L (21-32); CHLORIDE 101 mmol/L (98-107); COR CA(FOR HYPOALB) 9.9 mg/dL (8.5-10.1); CREATININE 0.35 mg/dL (0.55-1.02); SODIUM 139 mmol/L (136-145); TOTAL PROTEIN 5.2 g/dL (6.4-8.2); eGFR NON BLACK RACES > 60 (>60)
[2017-08-02 14:10] LABS: BASOPHILS % (AUTO) 0.3 % (0.2-1.0); EOSINOPHILS # (AUTO) 0.2 x10^3/uL (0.0-0.2); EOSINOPHILS % (AUTO) 1.6 % (0.9-2.9); HEMATOCRIT 28.4 % (36.0-47.0); HEMOGLOBIN 9.3 g/dL (12.0-16.0); LYMPHOCYTES # (AUTO) 0.9 X10^3/uL (1.3-2.9); LYMPHOCYTES % (AUTO) 7.3 % (21.0-51.0); MEAN CORPUSCULAR HEMOGLOBIN 30.1 pg (27.0-34.0); MEAN CORPUSCULAR HGB CONC 32.9 g/dL (33.0-35.0); MEAN CORPUSCULAR VOLUME 91.5 fL (80.0-100.0); MEAN PLATELET VOLUME 8.7 fL (7.4-11.0); MONOCYTES # (AUTO) 0.6 x10^3/uL (0.3-0.8); MONOCYTES % (AUTO) 4.6 % (0.0-13.0); NEUTROPHILS # (AUTO) 10.6 x10^3/uL (2.2-4.8); NEUTROPHILS % (AUTO) 86.2 % (42.0-75.0); PLATELET COUNT 266 X10^3/uL (150.0-450.0); RED CELL DISTRIBUTION WIDTH 15.8 % (11.6-16.5); WHITE BLOOD COUNT 12.2 X10^3/uL (3.6-10.0)
[2017-08-02] MEDS: MORPHINE SULFATE INJ 2 MG INJ IVP PRN (14:44)
[2017-08-02] MEDS: PROPAFENONE HCL PO SCH ×3 (15:00→21:49)
[2017-08-02] MEDS: AMIKACIN SULFATE IV SCH (15:01)
[2017-08-02] MEDS: CLARITIN PO SCH (15:01)
[2017-08-02] MEDS: LASIX PO SCH (15:01)
[2017-08-02] MEDS: NS IV SCH (15:01)
[2017-08-02] MEDS: INVANZ INJ 1 GM VIAL 1 GM in NS 100 ML IV + SPIKE MINIBAG* 100 ML IV SCH (15:01)
[2017-08-02] MEDS: POTASSIUM CHLORIDE LIQ 20 MEQ UDC PO SCH (15:02)
[2017-08-02] MEDS: VITAMIN C PO SCH (15:02)
[2017-08-02] MEDS: PROTONIX INJ 40 MG VIAL IVP SCH (15:02)
[2017-08-02] MEDS: NS 1000 ML 1,000 ML IV SCH (15:02)
[2017-08-02] MEDS: SULINDAC PO SCH (21:47)
[2017-08-02] MEDS: NEURONTIN CAP 400 MG PO SCH (21:47)
[2017-08-02] MEDS: TYLENOL 500 MG TAB EXTRA STRENGTH PO PRN (21:54)
[2017-08-03] MEDS: PROPAFENONE HCL PO SCH ×3 (05:35→21:58)
[2017-08-03 06:41] LABS: ALBUMIN 1.3 g/dL (3.4-5.0); ASPARTATE AMINO TRANSFERASE 9 Units/L (15-37); BLOOD UREA NITROGEN 5 mg/dL (7-18); CALCIUM 7.5 mg/dL (8.5-10.1); CHLORIDE 103 mmol/L (98-107); COR CA(FOR HYPOALB) 9.7 mg/dL (8.5-10.1); SODIUM 140 mmol/L (136-145); eGFR NON BLACK RACES > 60 (>60)
[2017-08-03 07:06] LABS: BASOPHILS % (AUTO) 0.4 % (0.2-1.0); EOSINOPHILS # (AUTO) 0.3 x10^3/uL (0.0-0.2); EOSINOPHILS % (AUTO) 3.4 % (0.9-2.9); HEMATOCRIT 26.9 % (36.0-47.0); HEMOGLOBIN 8.9 g/dL (12.0-16.0); LYMPHOCYTES % (AUTO) 11.2 % (21.0-51.0); MEAN CORPUSCULAR HEMOGLOBIN 30.3 pg (27.0-34.0); MEAN CORPUSCULAR HGB CONC 33.2 g/dL (33.0-35.0); MEAN CORPUSCULAR VOLUME 91.3 fL (80.0-100.0); MEAN PLATELET VOLUME 7.9 fL (7.4-11.0); MONOCYTES # (AUTO) 0.6 x10^3/uL (0.3-0.8); MONOCYTES % (AUTO) 6.7 % (0.0-13.0); NEUTROPHILS # (AUTO) 6.7 x10^3/uL (2.2-4.8); NEUTROPHILS % (AUTO) 78.3 % (42.0-75.0); PLATELET COUNT 244 X10^3/uL (150.0-450.0); RED BLOOD COUNT 2.95 X10^6/uL (3.5-5.4); RED CELL DISTRIBUTION WIDTH 15.7 % (11.6-16.5); WHITE BLOOD COUNT 8.6 X10^3/uL (3.6-10.0)
[2017-08-03 07:19] LABS: ALANINE AMINOTRANSFERASE 9 Units/L (12-78); ALKALINE PHOSPHATASE 71 Units/L (46-116); CARBON DIOXIDE 31.7 mmol/L (21-32); CREATININE 0.37 mg/dL (0.55-1.02); TOTAL PROTEIN 5.1 g/dL (6.4-8.2)
[2017-08-03] MEDS: POTASSIUM CHLORIDE LIQ 20 MEQ UDC PO SCH (09:05)
[2017-08-03] MEDS: INVANZ INJ 1 GM VIAL 1 GM in NS 100 ML IV + SPIKE MINIBAG* 100 ML IV SCH (09:05)
[2017-08-03] MEDS: PROTONIX INJ 40 MG VIAL IVP SCH (09:06)
[2017-08-03] MEDS: VITAMIN C PO SCH (09:06)
[2017-08-03] MEDS: LASIX PO SCH (09:06)
[2017-08-03] MEDS: CLARITIN PO SCH (09:06)
[2017-08-03] MEDS: DUONEB 0.5 MG/3 MG IN PRN (09:46)
[2017-08-03] MEDS: AMIKACIN SULFATE IV SCH (10:15)
[2017-08-03] MEDS: NS IV SCH (10:15)
[2017-08-03] MEDS: LIORESAL PO PRN (11:16)
--- NOTE | 2017-08-03 13:15 | PCM.PROG ---
Progress Note - Progress Note for Day of Date: 08/03/17 - Subjective Subjective: 76 WF ER ADMISSION WITH UTI, LEUKOCYTOSIS, SCARAL DECUBITUS, COLOSTOMY AND TRACH. PT CURRENT ON IV ATBX FOR UTI AND WOUND INFECTION. PT REQUIRES TOTAL CARE FOR ALL ADL'S. PT CO PAIN THIS AM, CURRENTLY ON IV MORPHINE , NO FAMILY AT BEDSIDE THIS AM. TALKED WITH CASE MANAGEMENT ABOUT ALF PLACEMENT. HGB IMPROVED. PT IS S/P TRANSFUSION 2 UNITS PRBC, FEELS BETTER OVERALL. - Past Medical Family Social History Past Med/Fam/Surg Hx: No changes since H&P Allergies: Allergies NOVA Inhibitors Allergy (Verified 07/26/17 13:34) fentanyl Allergy (Verified 07/26/17 13:34) lisinopril Allergy (Verified 07/26/17 13:34) - Review of Systems ROS: No change since H&P - Vital Signs and I&O's Vital Signs: Temperature 97.7 F Pulse Rate [Left] 79 Pulse Rate 84 Respiratory Rate 20 Blood Pressure [Left Arm] 99/51 Blood Pressure [Left Calf] 149/70 Blood Pressure [Right Calf] 113/96 Blood Pressure 99/50 O2 Sat by Pulse Oximetry 93 Intake and Output: Intake & Output 08/01/17 08/02/17 08/03/17 08/04/17 11:59 11:59 11:59 11:59 Intake Total 1580 / 1580 435 / 435 650 / 650 Output Total 2700 / 2700 2750 / 2750 2049 / 2049 Balance -1120 / -1120 -2315 / -2315 -1400 / -1400 - Physical Exam Oriented: Person Eyes: Normal Ear: Normal Nose: Normal Throat: Dry Respiratory: Diminished Cardiovascular: Normal Auscultation: Bowel Sounds: Increased Tenderness: Normal Skin: Decreased Turgur, Red, Tender, Wound (STAGE IV TO SACRUM. ), Other ( COLOSTOMY WITH PINK STOMA) Musculoskeletal: Right, Left, Arm, Leg, Back:Lumbar, Motor Deficit, Sensory Deficit, Instability Psychiatric: Depression Affect: Depressed Speech Pattern: Clear, Appropriate - Laboratory and Diagnostics Result Diagrams: 08/03/17 06:05 08/03/17 06:05 Labs: 07/28/17 11:58 Blood Blood Culture - Final 07/28/17 11:45 Blood Blood Culture - Final 07/26/17 13:15 Blood Blood Culture - Final 07/26/17 13:10 Blood Blood Culture - Final 07/26/17 17:32 Leg - Left Gram Stain - Final 07/26/17 17:32 Leg - Left Wound Culture - Final Providencia Stuartii 07/26/17 13:20 Urine,Catheterized Urine Culture - Final Providencia Stuartii 07/26/17 20:07 Foot - Right Gram Stain - Final 07/26/17 20:07 Foot - Right Wound Culture - Final Methicillin Resis Staph Aureus 07/28/17 10:41 Urine,Clean Catch Urine Culture - Final 07/26/17 17:32 Sacral Gram Stain - Final 07/26/17 17:32 Sacral Wound Culture - Final Acinetobacter Baumanii/Haemoly Laboratory WBC 8.6 X10^3/uL (3.6-10.0) 08/03/17 06:05 RBC 2.95 X10^6/uL (3.5-5.4) L 08/03/17 06:05 Hgb 8.9 g/dL (12.0-16.0) L 08/03/17 06:05 Hct 26.9 % (36.0-47.0) L 08/03/17 06:05 MCV 91.3 fL (80.0-100.0) 08/03/17 06:05 MCH 30.3 pg (27.0-34.0) 08/03/17 06:05 MCHC 33.2 g/dL (33.0-35.0) 08/03/17 06:05 RDW 15.7 % (11.6-16.5) 08/03/17 06:05 Plt Count 244 X10^3/uL (150.0-450.0) 08/03/17 06:05 Plt Count Comment Adequate (ADEQUATE) 07/30/17 04:18 MPV 7.9 fL (7.4-11.0) 08/03/17 06:05 Neut % (Auto) 78.3 % (42.0-75.0) H 08/03/17 06:05 Lymph % (Auto) 11.2 % (21.0-51.0) L 08/03/17 06:05 [place] % (Auto) 6.7 % (0.0-13.0) 08/03/17 06:05 Eos % (Auto) 3.4 % (0.9-2.9) H 08/03/17 06:05 Baso % (Auto) 0.4 % (0.2-1.0) 08/03/17 06:05 Neut # (Auto) 6.7 x10^3/uL (2.2-4.8) H 08/03/17 06:05 Lymph # (Auto) 1.0 X10^3/uL (1.3-2.9) L 08/03/17 06:05 [place] # (Auto) 0.6 x10^3/uL (0.3-0.8) 08/03/17 06:05 Eos # (Auto) 0.3 x10^3/uL (0.0-0.2) H 08/03/17 06:05 Baso # (Auto) 0.0 X10^3/uL (0.0-0.1) 08/03/17 06:05 Absolute Nucleated RBC 0.0 /100WBC 08/03/17 06:05 Total Counted 100 07/30/17 04:18 Neutrophils % (Manual) 79 % (39-76) H 07/30/17 04:18 Band Neutrophils % 12 % (0-10) H 07/30/17 04:18 Lymphocytes % (Manual) 5 % (13-43) L 07/30/17 04:18 Monocytes % (Manual) 4 % (4-9) 07/30/17 04:18 Eosinophils % (Manual) 0 % (0-6) 07/28/17 04:10 Plt Morphology Comment Normal (NORMAL) 07/30/17 04:18 RBC Morphology Abnormal (NORMAL) A 07/30/17 04:18 Hypochromasia 1+ A 07/30/17 04:18 Sodium 140 mmol/L (136-145) 08/03/17 06:05 Corrected Sodium TNP 08/03/17 06:05 Potassium 3.1 mmol/L (3.5-5.1) L 08/03/17 06:05 Chloride 103 mmol/L (98-107) 08/03/17 06:05 Carbon Dioxide 31.7 mmol/L (21-32) 08/03/17 06:05 BUN 5 mg/dL (7-18) L 08/03/17 06:05 Creatinine 0.37 mg/dL (0.55-1.02) L 08/03/17 06:05 Est GFR (MDRD) Af Amer > 60 (>60) 08/03/17 06:05 Est GFR (MDRD) Non-Af > 60 (>60) 08/03/17 06:05 Glucose 91 mg/dL (65-99) 08/03/17 06:05 Lactic Acid 0.3 mmol/L (0.4-2.0) L 07/29/17 05:35 Calcium 7.5 mg/dL (8.5-10.1) L 08/03/17 06:05 Corrected Calcium 9.7 mg/dL (8.5-10.1) 08/03/17 06:05 Iron 14 ug/dL (50-175) L 07/28/17 11:58 Transferrin 64 mg/dL (202-364) L 07/28/17 11:58 Ferritin 2863 ng/mL (8-252) H 07/28/17 11:58 Total Bilirubin 0.40 mg/dL (0.2-1.0) 08/03/17 06:05 AST 9 Units/L (15-37) L 08/03/17 06:05 ALT 9 Units/L (12-78) L 08/03/17 06:05 Alkaline Phosphatase 71 Units/L (46-116) 08/03/17 06:05 Creatine Kinase 18 Units/L (26-192) L 07/26/17 19:36 CK-MB (CK-2) < 1.0 ng/mL (0-4.0) 07/26/17 19:36 CK/CKMB % Calc 5.6 % (<4) 07/26/17 19:36 Troponin I 0.02 ng/mL (0-1.5) 07/26/17 19:36 C-Reactive Protein 178.80 mg/L (0-3.0) H 07/26/17 13:15 Total Protein 5.1 g/dL (6.4-8.2) L 08/03/17 06:05 Albumin 1.3 g/dL (3.4-5.0) L 08/03/17 06:05 Globulin 3.8 g/dL (2.5-4.5) 08/03/17 06:05 Albumin/Globulin Ratio 0.3 Ratio (1.1-2.1) L 08/03/17 06:05 Vitamin B12 > 2000 pg/mL (193-986) H 07/28/17 11:58 Folate > 20.0 ng/mL (>8.6) 07/28/17 11:58 Specimen Type Catherized urine 07/27/17 05:48 Urine Color [place] (YELLOW) 07/27/17 05:48 Urine Appearance Slightly hazy (CLEAR) 07/27/17 05:48 Urine pH 5.0 (5.0 - 8.0) 07/27/17 05:48 Ur Specific [place] 1.020 (1.000-1.030) 07/27/17 05:48 Urine Protein 2+ (NEGATIVE) 07/27/17 05:48 Urine Glucose (UA) Negative (NEGATIVE) 07/27/17 05:48 Urine Ketones 4+ (NEGATIVE) 07/27/17 05:48 Urine Occult Blood 3+ (NEGATIVE) 07/27/17 05:48 Urine Nitrite Positive (NEGATIVE) 07/27/17 05:48 Urine Bilirubin 1+ (NEGATIVE) 07/27/17 05:48 Urine Urobilinogen 2+ (NORMAL) 07/27/17 05:48 Ur Leukocyte Esterase 2+ (NEGATIVE) 07/27/17 05:48 Urine RBC 20-30 /HPF (NONE SEEN) 07/27/17 05:48 Urine WBC 20-30 /HPF (NONE SEEN) 07/27/17 05:48 Ur Squamous Epith Cells Rare /HPF (NEGATIVE) 07/27/17 05:48 Urine Bacteria Trace /HPF (NEGATIVE) 07/27/17 05:48 Hyaline Casts Few /LPF (NEGATIVE) 07/26/17 13:20 Urine Mucus Few /HPF (NEGATIVE) 07/27/17 05:48 Ur Culture Indicated? Yes/culture set up 07/27/17 05:48 Blood Type O POSITIVE 07/31/17 09:35 Antibody Screen Negative 07/31/17 09:35 Crossmatch See Detail 07/31/17 09:35 - Plan (1) UTI (urinary tract infection) Status: Acute Plan: CONTINUE IV ATBX. SEE CULTURE RESPORT, AM LABS. BLOOD PRESSURE AND BS CONTROL. 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 S/P TRANSFUSE 2 UNITS PRBC, REPEAT AM CBC
[2017-08-03] MEDS: MORPHINE SULFATE INJ 2 MG INJ IVP PRN (14:42)
[2017-08-03] MEDS: NS 1000 ML 1,000 ML IV SCH (18:39)
[2017-08-03] MEDS ORDERED: STERILE WATER IRRIGATION IR ONE (18:43)
[2017-08-03] MEDS: NEURONTIN CAP 400 MG PO SCH (21:57)
[2017-08-03] MEDS: SULINDAC PO SCH (21:58)
[2017-08-04] MEDS: MORPHINE SULFATE INJ 2 MG INJ IVP PRN (04:12)
[2017-08-04] MEDS: PROPAFENONE HCL PO SCH ×3 (05:09→21:05)
[2017-08-04] MEDS: PROTONIX INJ 40 MG VIAL IVP SCH (09:00)
[2017-08-04] MEDS: INVANZ INJ 1 GM VIAL 1 GM in NS 100 ML IV + SPIKE MINIBAG* 100 ML IV SCH (09:00)
[2017-08-04] MEDS: VITAMIN C PO SCH (09:01)
[2017-08-04] MEDS: CLARITIN PO SCH (09:01)
[2017-08-04] MEDS: LASIX PO SCH (09:01)
[2017-08-04] MEDS: POTASSIUM CHLORIDE LIQ 20 MEQ UDC PO SCH (09:01)
[2017-08-04] MEDS: NS 1000 ML 1,000 ML IV SCH ×2 (09:03→21:48)
[2017-08-04] MEDS: DUONEB 0.5 MG/3 MG IN PRN (09:48)
[2017-08-04] MEDS: AMIKACIN SULFATE IV SCH (11:00)
[2017-08-04] MEDS: NS IV SCH (11:00)
[2017-08-04] MEDS: SULINDAC PO SCH (20:58)
[2017-08-04] MEDS: NEURONTIN CAP 400 MG PO SCH (20:58)
[2017-08-05] MEDS: PROPAFENONE HCL PO SCH ×2 (05:06→15:15)
[2017-08-05] MEDS: LIORESAL PO PRN (05:07)
[2017-08-05] MEDS: INVANZ INJ 1 GM VIAL 1 GM in NS 100 ML IV + SPIKE MINIBAG* 100 ML IV SCH (08:12)
[2017-08-05] MEDS: POTASSIUM CHLORIDE LIQ 20 MEQ UDC PO SCH (08:13)
[2017-08-05] MEDS: CLARITIN PO SCH (08:13)
[2017-08-05] MEDS: VITAMIN C PO SCH (08:13)
[2017-08-05] MEDS: LASIX PO SCH (08:13)
[2017-08-05] MEDS: PROTONIX INJ 40 MG VIAL IVP SCH (08:14)
[2017-08-05] MEDS: NS 1000 ML 1,000 ML IV SCH (08:34)
[2017-08-05] MEDS: DUONEB 0.5 MG/3 MG IN PRN (09:17)
[2017-08-05] MEDS ORDERED: HYDROGEN PEROXIDE 3% ONE (09:42)
[2017-08-05] MEDS: AMIKACIN SULFATE IV SCH (11:00)
[2017-08-05] MEDS: NS IV SCH (11:00)
--- NOTE | 2017-08-05 12:13 | PCM.PROG ---
Progress Note - Progress Note for Day of Date: 08/04/17 - Subjective Subjective: 76 WF ER ADMISSION WITH UTI, LEUKOCYTOSIS, SCARAL DECUBITUS, COLOSTOMY AND TRACH. PT CURRENT ON IV ATBX FOR UTI AND WOUND INFECTION. PT REQUIRES TOTAL CARE FOR ALL ADL'S. PT CO PAIN THIS AM, CURRENTLY ON IV MORPHINE , NO FAMILY AT BEDSIDE THIS AM. TALKED WITH CASE MANAGEMENT ABOUT ALF PLACEMENT. HGB IMPROVED. PT IS S/P TRANSFUSION 2 UNITS PRBC, FEELS BETTER OVERALL. - Past Medical Family Social History Past Med/Fam/Surg Hx: No changes since H&P Allergies: Allergies NOVA Inhibitors Allergy (Verified 07/26/17 13:34) fentanyl Allergy (Verified 07/26/17 13:34) lisinopril Allergy (Verified 07/26/17 13:34) - Review of Systems ROS: No change since H&P - Vital Signs and I&O's Vital Signs: Temperature 98.2 F Pulse Rate [Left] 88 Pulse Rate 81 Respiratory Rate 20 Blood Pressure [Left Arm] 108/56 Blood Pressure [Left Calf] 149/70 Blood Pressure [Right Calf] 113/96 Blood Pressure 99/50 O2 Sat by Pulse Oximetry 98 Intake and Output: Intake & Output 08/03/17 08/04/17 08/05/17 08/06/17 11:59 11:59 11:59 11:59 Intake Total 650 / 650 1500 / 1500 1060 / 1060 Output Total 2049 / 2049 1400 / 1400 400 / 400 Balance -1400 / -1400 100 / 100 660 / 660 - Physical Exam Oriented: Person Eyes: Normal Ear: Normal Nose: Normal Throat: Dry Respiratory: Diminished Cardiovascular: Normal Auscultation: Bowel Sounds: Increased Tenderness: Normal Skin: Decreased [place], Red, Tender, Wound (STAGE IV TO SACRUM. ), Other ( COLOSTOMY WITH PINK STOMA) Musculoskeletal: Right, Left, Arm, Leg, Back:Lumbar, Motor Deficit, Sensory Deficit, Instability Psychiatric: Depression Affect: Depressed Speech Pattern: Clear, Appropriate - Laboratory and Diagnostics Result Diagrams: 08/03/17 06:05 08/03/17 06:05 Labs: 07/28/17 11:58 Blood Blood Culture - Final 07/28/17 11:45 Blood Blood Culture - Final 07/26/17 13:15 Blood Blood Culture - Final 07/26/17 13:10 Blood Blood Culture - Final 07/26/17 17:32 Leg - Left Gram Stain - Final 07/26/17 17:32 Leg - Left Wound Culture - Final Providencia Stuartii 07/26/17 13:20 Urine,Catheterized Urine Culture - Final Providencia Stuartii 07/26/17 20:07 Foot - Right Gram Stain - Final 07/26/17 20:07 Foot - Right Wound Culture - Final Methicillin Resis Staph Aureus 07/28/17 10:41 Urine,Clean Catch Urine Culture - Final 07/26/17 17:32 Sacral Gram Stain - Final 07/26/17 17:32 Sacral Wound Culture - Final Acinetobacter Baumanii/Haemoly Laboratory WBC 8.6 X10^3/uL (3.6-10.0) 08/03/17 06:05 RBC 2.95 X10^6/uL (3.5-5.4) L 08/03/17 06:05 Hgb 8.9 g/dL (12.0-16.0) L 08/03/17 06:05 Hct 26.9 % (36.0-47.0) L 08/03/17 06:05 MCV 91.3 fL (80.0-100.0) 08/03/17 06:05 MCH 30.3 pg (27.0-34.0) 08/03/17 06:05 MCHC 33.2 g/dL (33.0-35.0) 08/03/17 06:05 RDW 15.7 % (11.6-16.5) 08/03/17 06:05 Plt Count 244 X10^3/uL (150.0-450.0) 08/03/17 06:05 Plt Count Comment Adequate (ADEQUATE) 07/30/17 04:18 MPV 7.9 fL (7.4-11.0) 08/03/17 06:05 Neut % (Auto) 78.3 % (42.0-75.0) H 08/03/17 06:05 Lymph % (Auto) 11.2 % (21.0-51.0) L 08/03/17 06:05 [place] % (Auto) 6.7 % (0.0-13.0) 08/03/17 06:05 Eos % (Auto) 3.4 % (0.9-2.9) H 08/03/17 06:05 Baso % (Auto) 0.4 % (0.2-1.0) 08/03/17 06:05 Neut # (Auto) 6.7 x10^3/uL (2.2-4.8) H 08/03/17 06:05 Lymph # (Auto) 1.0 X10^3/uL (1.3-2.9) L 08/03/17 06:05 [place] # (Auto) 0.6 x10^3/uL (0.3-0.8) 08/03/17 06:05 Eos # (Auto) 0.3 x10^3/uL (0.0-0.2) H 08/03/17 06:05 Baso # (Auto) 0.0 X10^3/uL (0.0-0.1) 08/03/17 06:05 Absolute Nucleated RBC 0.0 /100WBC 08/03/17 06:05 Total Counted 100 07/30/17 04:18 Neutrophils % (Manual) 79 % (39-76) H 07/30/17 04:18 Band Neutrophils % 12 % (0-10) H 07/30/17 04:18 Lymphocytes % (Manual) 5 % (13-43) L 07/30/17 04:18 Monocytes % (Manual) 4 % (4-9) 07/30/17 04:18 Eosinophils % (Manual) 0 % (0-6) 07/28/17 04:10 Plt Morphology Comment Normal (NORMAL) 07/30/17 04:18 RBC Morphology Abnormal (NORMAL) A 07/30/17 04:18 Hypochromasia 1+ A 07/30/17 04:18 Sodium 140 mmol/L (136-145) 08/03/17 06:05 Corrected Sodium TNP 08/03/17 06:05 Potassium 3.1 mmol/L (3.5-5.1) L 08/03/17 06:05 Chloride 103 mmol/L (98-107) 08/03/17 06:05 Carbon Dioxide 31.7 mmol/L (21-32) 08/03/17 06:05 BUN 5 mg/dL (7-18) L 08/03/17 06:05 Creatinine 0.37 mg/dL (0.55-1.02) L 08/03/17 06:05 Est GFR (MDRD) Af Amer > 60 (>60) 08/03/17 06:05 Est GFR (MDRD) Non-Af > 60 (>60) 08/03/17 06:05 Glucose 91 mg/dL (65-99) 08/03/17 06:05 Lactic Acid 0.3 mmol/L (0.4-2.0) L 07/29/17 05:35 Calcium 7.5 mg/dL (8.5-10.1) L 08/03/17 06:05 Corrected Calcium 9.7 mg/dL (8.5-10.1) 08/03/17 06:05 Iron 14 ug/dL (50-175) L 07/28/17 11:58 Transferrin 64 mg/dL (202-364) L 07/28/17 11:58 Ferritin 2863 ng/mL (8-252) H 07/28/17 11:58 Total Bilirubin 0.40 mg/dL (0.2-1.0) 08/03/17 06:05 AST 9 Units/L (15-37) L 08/03/17 06:05 ALT 9 Units/L (12-78) L 08/03/17 06:05 Alkaline Phosphatase 71 Units/L (46-116) 08/03/17 06:05 Creatine Kinase 18 Units/L (26-192) L 07/26/17 19:36 CK-MB (CK-2) < 1.0 ng/mL (0-4.0) 07/26/17 19:36 CK/CKMB % Calc 5.6 % (<4) 07/26/17 19:36 Troponin I 0.02 ng/mL (0-1.5) 07/26/17 19:36 C-Reactive Protein 178.80 mg/L (0-3.0) H 07/26/17 13:15 Total Protein 5.1 g/dL (6.4-8.2) L 08/03/17 06:05 Albumin 1.3 g/dL (3.4-5.0) L 08/03/17 06:05 Globulin 3.8 g/dL (2.5-4.5) 08/03/17 06:05 Albumin/Globulin Ratio 0.3 Ratio (1.1-2.1) L 08/03/17 06:05 Vitamin B12 > 2000 pg/mL (193-986) H 07/28/17 11:58 Folate > 20.0 ng/mL (>8.6) 07/28/17 11:58 Specimen Type Catherized urine 07/27/17 05:48 Urine Color [place] (YELLOW) 07/27/17 05:48 Urine Appearance Slightly hazy (CLEAR) 07/27/17 05:48 Urine pH 5.0 (5.0 - 8.0) 07/27/17 05:48 Ur Specific [place] 1.020 (1.000-1.030) 07/27/17 05:48 Urine Protein 2+ (NEGATIVE) 07/27/17 05:48 Urine Glucose (UA) Negative (NEGATIVE) 07/27/17 05:48 Urine Ketones 4+ (NEGATIVE) 07/27/17 05:48 Urine Occult Blood 3+ (NEGATIVE) 07/27/17 05:48 Urine Nitrite Positive (NEGATIVE) 07/27/17 05:48 Urine Bilirubin 1+ (NEGATIVE) 07/27/17 05:48 Urine Urobilinogen 2+ (NORMAL) 07/27/17 05:48 Ur Leukocyte Esterase 2+ (NEGATIVE) 07/27/17 05:48 Urine RBC 20-30 /HPF (NONE SEEN) 07/27/17 05:48 Urine WBC 20-30 /HPF (NONE SEEN) 07/27/17 05:48 Ur Squamous Epith Cells Rare /HPF (NEGATIVE) 07/27/17 05:48 Urine Bacteria Trace /HPF (NEGATIVE) 07/27/17 05:48 Hyaline Casts Few /LPF (NEGATIVE) 07/26/17 13:20 Urine Mucus Few /HPF (NEGATIVE) 07/27/17 05:48 Ur Culture Indicated? Yes/culture set up 07/27/17 05:48 Blood Type O POSITIVE 07/31/17 09:35 Antibody Screen Negative 07/31/17 09:35 Crossmatch See Detail 07/31/17 09:35 - Plan (1) UTI (urinary tract infection) Status: Acute Plan: CONTINUE IV ATBX. SEE CULTURE RESPORT, AM LABS. BLOOD PRESSURE AND BS CONTROL. 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 S/P TRANSFUSE 2 UNITS PRBC, REPEAT AM CBC
[2017-08-05 16:15] VITALS: BP 140/68
--- NOTE | 2017-08-27 21:45 | DR.H&P ---
H&P - History & Physical for Day of: H&P Date: 07/26/17 - Chief Complaint Chief Complaint: nausea and vomiting, abd pain - History of Present Illness History of Present Illness: 6 WF ER ADMISSION WITH UTI, LEUKOCYTOSIS, SCARAL DECUBITUS, COLOSTOMY AND TRACH. PT REQUIRES TOTAL CARE FOR ALL ADL'S. HAD NAUSEA , VOMTING AND ABD X 1 DAY. - Past Medical History Past Medical History: Anemia, Anxiety, Arthritis, CHF, Depression, Diabetes, Dyslipidemia, GERD, Hypertension Additional Medical History: H/o G-B syndrome, currently receiving intermittent IGG tx - Past Surgical History Surgical History: Hysterectomy, Ortho Surgery, Other - Family History Family Medical History: Diabetes Mellitus, Cancer, Hypertension - Social History Does patient currently use any type of tobacco product: No Have you used tobacco products in the last 12 months: No Type of Tobacco Use: None Does any household member use tobacco: No Alcohol Use: None Drug Use: None - Medications Home Medications: NOVA Inhibitors Allergy (Verified 07/26/17 13:34) fentanyl Allergy (Verified 07/26/17 13:34) lisinopril Allergy (Verified 07/26/17 13:34) CONTINUE taking the following medications Gabapentin 400 mg PO DAILY 07/26/17 [History] Misc Home Med [Patient's Home Medication] 1 tab PO HS PRN 07/26/17 [History] albuterol sulfate [VENTOLIN or PROAIR HFA Inhaler *] 1 inh INH PRN PRN 07/26/17 [History] ascorbic acid (vitamin C) [VITAMIN C tab 500 mg *] 500 mg PO BID 07/26/17 [ History] baclofen 1 tab PO QID PRN 07/26/17 [History] collagenase clostridium histo. [SANTYL OINTMENT *] 1 appful TOP PRN PRN [History] furosemide 40 mg PO DAILY 07/26/17 [History] gabapentin 800 mg PO HS 07/26/17 [History] ibuprofen 800 mg PO TID PRN 07/26/17 [History] ipratropium-albuterol 1 inh INH PRN PRN 07/26/17 [History] loratadine 10 mg PO DAILY 07/26/17 [History] metformin 500 mg PO DAILY PRN 07/26/17 [History] mupirocin 1 unit TOP PRN PRN 07/26/17 [History] ondansetron [Zofran ODT] 4 mg PO TID PRN 07/26/17 [History] potassium chloride [Klor-Con 10] 10 meq PO BID 07/26/17 [History] pramipexole 0.5 mg PO HS 07/26/17 [History] pravastatin 40 mg PO HS 07/26/17 [History] propafenone 300 mg PO BID 07/26/17 [History] ranitidine HCl 300 mg PO DAILY 07/26/17 [History] sulindac 1 tab PO HS 07/26/17 [History] zinc 50 mg PO DAILY 07/26/17 [History] - Review of Systems Constitutional: Weakness Eyes: No Symptoms Reported ENT: No Symptoms Reported Respiratory: Other (TRACH) Cardiovascular: No Symptoms Reported Gastrointestinal: Nausea, Vomiting, Abdominal Pain Genitourinary: Dysuria Musculoskeletal: No Symptoms Reported Skin: Wound (PRESSURE WOUNDS) Neurological: Other (HEMIPLEGIA/PARAPLEGIA) - Physical Exam Vital Signs: Temperature 97.8 F Pulse Rate [Left Brachial] 98 Pulse Rate [Left] 88 Pulse Rate 81 Respiratory Rate 20 Blood Pressure [Left Arm] 140/68 Blood Pressure [Left Calf] 149/70 Blood Pressure [Right Calf] 113/96 Blood Pressure 99/50 O2 Sat by Pulse Oximetry 100 Oriented: Person Eyes: Normal Ear: Normal Nose: Normal Throat: Other (TRACH) Respiratory: Diminished Throughout Cardiovascular: Normal : Normal Auscultation: Bowel Sounds: Normal Palpation: Normal Tenderness: Suprapubic Skin: Wound (SACRUM, RIGHT FOOT, LEFT LEG) Musculoskeletal: Motor Deficit, Sensory Deficit Psychiatric: Normal Mood Description: Calm Affect: Normal Speech Pattern: Clear - Assessment/Plan (1) Anemia Status: Acute Plan: MONITOR CBC, TRANSFUSE NEEDED (2) Colostomy in place Status: Acute (3) Dehydration, mild Status: Acute Plan: MONITOR LABS, IV HYDRATION. (4) Generalized weakness Status: Acute (5) Tracheostomy in place Status: Acute (6) UTI (urinary tract infection) Status: Acute Plan: URINE CULTURE PENDING. IV ANTIBIOTICS. (7) Decubitus skin ulcer Status: Chronic Plan: WOUND CULTURES, WOUND CARE. (8) Diabetes Status: Chronic (9) HTN (hypertension) Status: Chronic - Allergies Allergies/Adverse Reactions: Allergies Allergy/AdvReac Type Severity Reaction Status Date / Time NOVA Inhibitors Allergy Verified 07/26/17 13:34 fentanyl Allergy Verified 07/26/17 13:34 lisinopril Allergy Verified 07/26/17 13:34
--- NOTE | 2017-08-27 21:49 | PCM.PROG ---
Progress Note - Progress Note for Day of Date: 07/28/17 - Subjective Subjective: 76 WF ER ADMISSION WITH UTI, LEUKOCYTOSIS, SCARAL DECUBITUS, COLOSTOMY AND TRACH. PT CURRENT ON IV ATBX FOR UTI AND WOUND INFECTION. PT REQUIRES TOTAL CARE FOR ALL ADL'S. NO NEW COMPLAINTS. STILL HAVING PAIN. - Past Medical Family Social History Past Med/Fam/Surg Hx: No changes since H&P Allergies: Allergies NOVA Inhibitors Allergy (Verified 07/26/17 13:34) fentanyl Allergy (Verified 07/26/17 13:34) lisinopril Allergy (Verified 07/26/17 13:34) - Review of Systems ROS: No change since H&P - Vital Signs and I&O's Vital Signs: Temperature 97.8 F Pulse Rate [Left Brachial] 98 Pulse Rate [Left] 88 Pulse Rate 81 Respiratory Rate 20 Blood Pressure [Left Arm] 140/68 Blood Pressure [Left Calf] 149/70 Blood Pressure [Right Calf] 113/96 Blood Pressure 99/50 O2 Sat by Pulse Oximetry 100 - Physical Exam Oriented: Person Eyes: Normal Ear: Normal Nose: Normal Throat: Other (TRACH) Respiratory: Diminished Cardiovascular: Normal : Normal Auscultation: Bowel Sounds: Normal Tenderness: Suprapubic Skin: Wound (SACRUM, RIGHT FOOT, LEFT LEG) Musculoskeletal: Motor Deficit, Sensory Deficit Psychiatric: Normal Mood Description: Calm Affect: Normal Speech Pattern: Clear - Laboratory and Diagnostics Result Diagrams: 08/03/17 06:05 08/03/17 06:05 Labs: 07/28/17 11:58 Blood Blood Culture - Final 07/28/17 11:45 Blood Blood Culture - Final 07/26/17 13:15 Blood Blood Culture - Final 07/26/17 13:10 Blood Blood Culture - Final 07/26/17 17:32 Leg - Left Gram Stain - Final 07/26/17 17:32 Leg - Left Wound Culture - Final Providencia Stuartii 07/26/17 13:20 Urine,Catheterized Urine Culture - Final Providencia Stuartii 07/26/17 20:07 Foot - Right Gram Stain - Final 07/26/17 20:07 Foot - Right Wound Culture - Final Methicillin Resis Staph Aureus 07/28/17 10:41 Urine,Clean Catch Urine Culture - Final 07/26/17 17:32 Sacral Gram Stain - Final 07/26/17 17:32 Sacral Wound Culture - Final Acinetobacter Baumanii/Haemoly Laboratory WBC 8.6 X10^3/uL (3.6-10.0) 08/03/17 06:05 RBC 2.95 X10^6/uL (3.5-5.4) L 08/03/17 06:05 Hgb 8.9 g/dL (12.0-16.0) L 08/03/17 06:05 Hct 26.9 % (36.0-47.0) L 08/03/17 06:05 MCV 91.3 fL (80.0-100.0) 08/03/17 06:05 MCH 30.3 pg (27.0-34.0) 08/03/17 06:05 MCHC 33.2 g/dL (33.0-35.0) 08/03/17 06:05 RDW 15.7 % (11.6-16.5) 08/03/17 06:05 Plt Count 244 X10^3/uL (150.0-450.0) 08/03/17 06:05 Plt Count Comment Adequate (ADEQUATE) 07/30/17 04:18 MPV 7.9 fL (7.4-11.0) 08/03/17 06:05 Neut % (Auto) 78.3 % (42.0-75.0) H 08/03/17 06:05 Lymph % (Auto) 11.2 % (21.0-51.0) L 08/03/17 06:05 [place] % (Auto) 6.7 % (0.0-13.0) 08/03/17 06:05 Eos % (Auto) 3.4 % (0.9-2.9) H 08/03/17 06:05 Baso % (Auto) 0.4 % (0.2-1.0) 08/03/17 06:05 Neut # (Auto) 6.7 x10^3/uL (2.2-4.8) H 08/03/17 06:05 Lymph # (Auto) 1.0 X10^3/uL (1.3-2.9) L 08/03/17 06:05 [place] # (Auto) 0.6 x10^3/uL (0.3-0.8) 08/03/17 06:05 Eos # (Auto) 0.3 x10^3/uL (0.0-0.2) H 08/03/17 06:05 Baso # (Auto) 0.0 X10^3/uL (0.0-0.1) 08/03/17 06:05 Absolute Nucleated RBC 0.0 /100WBC 08/03/17 06:05 Total Counted 100 07/30/17 04:18 Neutrophils % (Manual) 79 % (39-76) H 07/30/17 04:18 Band Neutrophils % 12 % (0-10) H 07/30/17 04:18 Lymphocytes % (Manual) 5 % (13-43) L 07/30/17 04:18 Monocytes % (Manual) 4 % (4-9) 07/30/17 04:18 Eosinophils % (Manual) 0 % (0-6) 07/28/17 04:10 Plt Morphology Comment Normal (NORMAL) 07/30/17 04:18 RBC Morphology Abnormal (NORMAL) A 07/30/17 04:18 Hypochromasia 1+ A 07/30/17 04:18 Sodium 140 mmol/L (136-145) 08/03/17 06:05 Corrected Sodium TNP 08/03/17 06:05 Potassium 3.1 mmol/L (3.5-5.1) L 08/03/17 06:05 Chloride 103 mmol/L (98-107) 08/03/17 06:05 Carbon Dioxide 31.7 mmol/L (21-32) 08/03/17 06:05 BUN 5 mg/dL (7-18) L 08/03/17 06:05 Creatinine 0.37 mg/dL (0.55-1.02) L 08/03/17 06:05 Est GFR (MDRD) Af Amer > 60 (>60) 08/03/17 06:05 Est GFR (MDRD) Non-Af > 60 (>60) 08/03/17 06:05 Glucose 91 mg/dL (65-99) 08/03/17 06:05 Lactic Acid 0.3 mmol/L (0.4-2.0) L 07/29/17 05:35 Calcium 7.5 mg/dL (8.5-10.1) L 08/03/17 06:05 Corrected Calcium 9.7 mg/dL (8.5-10.1) 08/03/17 06:05 Iron 14 ug/dL (50-175) L 07/28/17 11:58 Transferrin 64 mg/dL (202-364) L 07/28/17 11:58 Ferritin 2863 ng/mL (8-252) H 07/28/17 11:58 Total Bilirubin 0.40 mg/dL (0.2-1.0) 08/03/17 06:05 AST 9 Units/L (15-37) L 08/03/17 06:05 ALT 9 Units/L (12-78) L 08/03/17 06:05 Alkaline Phosphatase 71 Units/L (46-116) 08/03/17 06:05 Creatine Kinase 18 Units/L (26-192) L 07/26/17 19:36 CK-MB (CK-2) < 1.0 ng/mL (0-4.0) 07/26/17 19:36 CK/CKMB % Calc 5.6 % (<4) 07/26/17 19:36 Troponin I 0.02 ng/mL (0-1.5) 07/26/17 19:36 C-Reactive Protein 178.80 mg/L (0-3.0) H 07/26/17 13:15 Total Protein 5.1 g/dL (6.4-8.2) L 08/03/17 06:05 Albumin 1.3 g/dL (3.4-5.0) L 08/03/17 06:05 Globulin 3.8 g/dL (2.5-4.5) 08/03/17 06:05 Albumin/Globulin Ratio 0.3 Ratio (1.1-2.1) L 08/03/17 06:05 Vitamin B12 > 2000 pg/mL (193-986) H 07/28/17 11:58 Folate > 20.0 ng/mL (>8.6) 07/28/17 11:58 Specimen Type Catherized urine 07/27/17 05:48 Urine Color [place] (YELLOW) 07/27/17 05:48 Urine Appearance Slightly hazy (CLEAR) 07/27/17 05:48 Urine pH 5.0 (5.0 - 8.0) 07/27/17 05:48 Ur Specific [place] 1.020 (1.000-1.030) 07/27/17 05:48 Urine Protein 2+ (NEGATIVE) 07/27/17 05:48 Urine Glucose (UA) Negative (NEGATIVE) 07/27/17 05:48 Urine Ketones 4+ (NEGATIVE) 07/27/17 05:48 Urine Occult Blood 3+ (NEGATIVE) 07/27/17 05:48 Urine Nitrite Positive (NEGATIVE) 07/27/17 05:48 Urine Bilirubin 1+ (NEGATIVE) 07/27/17 05:48 Urine Urobilinogen 2+ (NORMAL) 07/27/17 05:48 Ur Leukocyte Esterase 2+ (NEGATIVE) 07/27/17 05:48 Urine RBC 20-30 /HPF (NONE SEEN) 07/27/17 05:48 Urine WBC 20-30 /HPF (NONE SEEN) 07/27/17 05:48 Ur Squamous Epith Cells Rare /HPF (NEGATIVE) 07/27/17 05:48 Urine Bacteria Trace /HPF (NEGATIVE) 07/27/17 05:48 Hyaline Casts Few /LPF (NEGATIVE) 07/26/17 13:20 Urine Mucus Few /HPF (NEGATIVE) 07/27/17 05:48 Ur Culture Indicated? Yes/culture set up 07/27/17 05:48 Blood Type O POSITIVE 07/31/17 09:35 Antibody Screen Negative 07/31/17 09:35 Crossmatch See Detail 07/31/17 09:35 - Plan (1) Anemia Status: Acute Plan: MONITOR CBC, TRANSFUSE NEEDED (2) Colostomy in place Status: Acute Plan: COLOSTOMY CARE (3) Dehydration, mild Status: Acute Plan: MONITOR LABS, IV HYDRATION. (4) Generalized weakness Status: Acute (5) Tracheostomy in place Status: Acute (6) UTI (urinary tract infection) Status: Acute Plan: URINE CULTURE PENDING. IV ANTIBIOTICS. (7) Decubitus skin ulcer Status: Chronic Plan: WOUND CULTURES, WOUND CARE. (8) Diabetes Status: Chronic Plan: BLOOD SUGAR MONITORING (9) HTN (hypertension) Status: Chronic
--- NOTE | 2017-08-27 21:54 | PCM.DCPLAN ---
Discharge Summary - Admission Date Date of Admission: 07/26/17 - Discharge Date Discharge Date: 08/05/17 - Admission Diagnoses (1) Anemia Status: Acute (2) Colostomy in place Status: Acute (3) Dehydration, mild Status: Acute (4) Generalized weakness Status: Acute (5) Tracheostomy in place Status: Acute (6) UTI (urinary tract infection) Status: Acute (7) Decubitus skin ulcer Status: Chronic (8) Diabetes Status: Chronic (9) HTN (hypertension) Status: Chronic - Discharge Diagnoses Discharge Diagnosis: SAME ADMISSION DIAGNOSIS - Discharge Medications Discharge Medications: Home Medication List Gabapentin 400 mg PO DAILY 07/26/17 [History] Misc Home Med [Patient's Home Medication] 1 tab PO HS PRN 07/26/17 [History] albuterol sulfate [VENTOLIN or PROAIR HFA Inhaler *] 1 inh INH PRN PRN 07/26/17 [History] ascorbic acid (vitamin C) [VITAMIN C tab 500 mg *] 500 mg PO BID 07/26/17 [ History] baclofen 1 tab PO QID PRN 07/26/17 [History] collagenase clostridium histo. [SANTYL OINTMENT *] 1 appful TOP PRN PRN [History] furosemide 40 mg PO DAILY 07/26/17 [History] gabapentin 800 mg PO HS 07/26/17 [History] ibuprofen 800 mg PO TID PRN 07/26/17 [History] ipratropium-albuterol 1 inh INH PRN PRN 07/26/17 [History] loratadine 10 mg PO DAILY 07/26/17 [History] metformin 500 mg PO DAILY PRN 07/26/17 [History] mupirocin 1 unit TOP PRN PRN 07/26/17 [History] ondansetron [Zofran ODT] 4 mg PO TID PRN 07/26/17 [History] potassium chloride [Klor-Con 10] 10 meq PO BID 07/26/17 [History] pramipexole 0.5 mg PO HS 07/26/17 [History] pravastatin 40 mg PO HS 07/26/17 [History] propafenone 300 mg PO BID 07/26/17 [History] ranitidine HCl 300 mg PO DAILY 07/26/17 [History] sulindac 1 tab PO HS 07/26/17 [History] zinc 50 mg PO DAILY 07/26/17 [History] Prescriptions: - Hospital Course Vital Signs: Temperature 97.8 F Pulse Rate [Left Brachial] 98 Pulse Rate [Left] 88 Pulse Rate 81 Respiratory Rate 20 Blood Pressure [Left Arm] 140/68 Blood Pressure [Left Calf] 149/70 Blood Pressure [Right Calf] 113/96 Blood Pressure 99/50 O2 Sat by Pulse Oximetry 100 Latest Lab Results: Laboratory Last Values WBC 8.6 X10^3/uL (3.6-10.0) 08/03/17 06:05 RBC 2.95 X10^6/uL (3.5-5.4) L 08/03/17 06:05 Hgb 8.9 g/dL (12.0-16.0) L 08/03/17 06:05 Hct 26.9 % (36.0-47.0) L 08/03/17 06:05 MCV 91.3 fL (80.0-100.0) 08/03/17 06:05 MCH 30.3 pg (27.0-34.0) 08/03/17 06:05 MCHC 33.2 g/dL (33.0-35.0) 08/03/17 06:05 RDW 15.7 % (11.6-16.5) 08/03/17 06:05 Plt Count 244 X10^3/uL (150.0-450.0) 08/03/17 06:05 Plt Count Comment Adequate (ADEQUATE) 07/30/17 04:18 MPV 7.9 fL (7.4-11.0) 08/03/17 06:05 Neut % (Auto) 78.3 % (42.0-75.0) H 08/03/17 06:05 Lymph % (Auto) 11.2 % (21.0-51.0) L 08/03/17 06:05 [place] % (Auto) 6.7 % (0.0-13.0) 08/03/17 06:05 Eos % (Auto) 3.4 % (0.9-2.9) H 08/03/17 06:05 Baso % (Auto) 0.4 % (0.2-1.0) 08/03/17 06:05 Neut # (Auto) 6.7 x10^3/uL (2.2-4.8) H 08/03/17 06:05 Lymph # (Auto) 1.0 X10^3/uL (1.3-2.9) L 08/03/17 06:05 [place] # (Auto) 0.6 x10^3/uL (0.3-0.8) 08/03/17 06:05 Eos # (Auto) 0.3 x10^3/uL (0.0-0.2) H 08/03/17 06:05 Baso # (Auto) 0.0 X10^3/uL (0.0-0.1) 08/03/17 06:05 Absolute Nucleated RBC 0.0 /100WBC 08/03/17 06:05 Total Counted 100 07/30/17 04:18 Neutrophils % (Manual) 79 % (39-76) H 07/30/17 04:18 Band Neutrophils % 12 % (0-10) H 07/30/17 04:18 Lymphocytes % (Manual) 5 % (13-43) L 07/30/17 04:18 Monocytes % (Manual) 4 % (4-9) 07/30/17 04:18 Eosinophils % (Manual) 0 % (0-6) 07/28/17 04:10 Plt Morphology Comment Normal (NORMAL) 07/30/17 04:18 RBC Morphology Abnormal (NORMAL) A 07/30/17 04:18 Hypochromasia 1+ A 07/30/17 04:18 Sodium 140 mmol/L (136-145) 08/03/17 06:05 Corrected Sodium TNP 08/03/17 06:05 Potassium 3.1 mmol/L (3.5-5.1) L 08/03/17 06:05 Chloride 103 mmol/L (98-107) 08/03/17 06:05 Carbon Dioxide 31.7 mmol/L (21-32) 08/03/17 06:05 BUN 5 mg/dL (7-18) L 08/03/17 06:05 Creatinine 0.37 mg/dL (0.55-1.02) L 08/03/17 06:05 Est GFR (MDRD) Af Amer > 60 (>60) 08/03/17 06:05 Est GFR (MDRD) Non-Af > 60 (>60) 08/03/17 06:05 Glucose 91 mg/dL (65-99) 08/03/17 06:05 Lactic Acid 0.3 mmol/L (0.4-2.0) L 07/29/17 05:35 Calcium 7.5 mg/dL (8.5-10.1) L 08/03/17 06:05 Corrected Calcium 9.7 mg/dL (8.5-10.1) 08/03/17 06:05 Iron 14 ug/dL (50-175) L 07/28/17 11:58 Transferrin 64 mg/dL (202-364) L 07/28/17 11:58 Ferritin 2863 ng/mL (8-252) H 07/28/17 11:58 Total Bilirubin 0.40 mg/dL (0.2-1.0) 08/03/17 06:05 AST 9 Units/L (15-37) L 08/03/17 06:05 ALT 9 Units/L (12-78) L 08/03/17 06:05 Alkaline Phosphatase 71 Units/L (46-116) 08/03/17 06:05 Creatine Kinase 18 Units/L (26-192) L 07/26/17 19:36 CK-MB (CK-2) < 1.0 ng/mL (0-4.0) 07/26/17 19:36 CK/CKMB % Calc 5.6 % (<4) 07/26/17 19:36 Troponin I 0.02 ng/mL (0-1.5) 07/26/17 19:36 C-Reactive Protein 178.80 mg/L (0-3.0) H 07/26/17 13:15 Total Protein 5.1 g/dL (6.4-8.2) L 08/03/17 06:05 Albumin 1.3 g/dL (3.4-5.0) L 08/03/17 06:05 Globulin 3.8 g/dL (2.5-4.5) 08/03/17 06:05 Albumin/Globulin Ratio 0.3 Ratio (1.1-2.1) L 08/03/17 06:05 Vitamin B12 > 2000 pg/mL (193-986) H 07/28/17 11:58 Folate > 20.0 ng/mL (>8.6) 07/28/17 11:58 Specimen Type Catherized urine 07/27/17 05:48 Urine Color [place] (YELLOW) 07/27/17 05:48 Urine Appearance Slightly hazy (CLEAR) 07/27/17 05:48 Urine pH 5.0 (5.0 - 8.0) 07/27/17 05:48 Ur Specific [place] 1.020 (1.000-1.030) 07/27/17 05:48 Urine Protein 2+ (NEGATIVE) 07/27/17 05:48 Urine Glucose (UA) Negative (NEGATIVE) 07/27/17 05:48 Urine Ketones 4+ (NEGATIVE) 07/27/17 05:48 Urine Occult Blood 3+ (NEGATIVE) 07/27/17 05:48 Urine Nitrite Positive (NEGATIVE) 07/27/17 05:48 Urine Bilirubin 1+ (NEGATIVE) 07/27/17 05:48 Urine Urobilinogen 2+ (NORMAL) 07/27/17 05:48 Ur Leukocyte Esterase 2+ (NEGATIVE) 07/27/17 05:48 Urine RBC 20-30 /HPF (NONE SEEN) 07/27/17 05:48 Urine WBC 20-30 /HPF (NONE SEEN) 07/27/17 05:48 Ur Squamous Epith Cells Rare /HPF (NEGATIVE) 07/27/17 05:48 Urine Bacteria Trace /HPF (NEGATIVE) 07/27/17 05:48 Hyaline Casts Few /LPF (NEGATIVE) 07/26/17 13:20 Urine Mucus Few /HPF (NEGATIVE) 07/27/17 05:48 Ur Culture Indicated? Yes/culture set up 07/27/17 05:48 Blood Type O POSITIVE 07/31/17 09:35 Antibody Screen Negative 07/31/17 09:35 Crossmatch See Detail 07/31/17 09:35 Hospital Course: 6 WF ER ADMISSION WITH UTI, LEUKOCYTOSIS, SCARAL DECUBITUS, COLOSTOMY AND TRACH. PT PLACED ON IV ATBX FOR UTI AND WOUND INFECTION. PT REQUIRES TOTAL CARE FOR ALL ADL'S. WOUND CARE WAS GIVEN. PATIENT DID REQUIRE TRANSFUSION OF PRBCS DUE TO ANEMIA. SYMPTOMS IMPROVED AND PATIENT WAS DISCHARGED HOME TO BE FOLLOWED OUTPATIENT. - Discharge Plan Disposition: XFER SNF Condition: Stable - Follow ups/Referrals Follow ups/Referrals: [facility] [Other] JULIANNE HALLMAN [Primary Care Provider] - 3 days - Instructions
--- NOTE | 2017-09-01 07:34 | PCM.PROG ---
Progress Note - Progress Note for Day of Date of Exam: 07/29/17 - Subjective Subjective: 76 WF ER ADMISSION WITH UTI, LEUKOCYTOSIS, SCARAL DECUBITUS, COLOSTOMY AND TRACH. PT CURRENT ON IV ATBX FOR UTI AND WOUND INFECTION. PT REQUIRES TOTAL CARE FOR ALL ADL'S. STATES PAIN HAS IMPROVED. DENIES ANY CURRENT COMPLAINTS. - Past Medical Family Social History Past Med/Fam/Surg Hx: No changes since H&P Allergies: Allergies NOVA Inhibitors Allergy (Verified 07/26/17 13:34) fentanyl Allergy (Verified 07/26/17 13:34) lisinopril Allergy (Verified 07/26/17 13:34) - Review of Systems ROS: No change since H&P - Vital Signs and I&O's Vital Signs: Temperature 97.8 F Pulse Rate [Left Brachial] 98 Pulse Rate [Left] 88 Pulse Rate 81 Respiratory Rate 20 Blood Pressure [Left Arm] 140/68 Blood Pressure [Left Calf] 149/70 Blood Pressure [Right Calf] 113/96 Blood Pressure 99/50 O2 Sat by Pulse Oximetry 100 - Physical Exam Oriented: Person Eyes: Normal Ear: Normal Nose: Normal Throat: Other (TRACH) Respiratory: Diminished Cardiovascular: Normal : Normal Auscultation: Bowel Sounds: Normal Tenderness: Suprapubic Skin: Wound (SACRUM, RIGHT FOOT, LEFT LEG) Musculoskeletal: Motor Deficit, Sensory Deficit Psychiatric: Normal Mood Description: Calm Affect: Normal Speech Pattern: Clear - Laboratory and Diagnostics Result Diagrams: 08/03/17 06:05 08/03/17 06:05 Labs: 07/28/17 11:58 Blood Blood Culture - Final 07/28/17 11:45 Blood Blood Culture - Final 07/26/17 13:15 Blood Blood Culture - Final 07/26/17 13:10 Blood Blood Culture - Final 07/26/17 17:32 Leg - Left Gram Stain - Final 07/26/17 17:32 Leg - Left Wound Culture - Final Providencia Stuartii 07/26/17 13:20 Urine,Catheterized Urine Culture - Final Providencia Stuartii 07/26/17 20:07 Foot - Right Gram Stain - Final 07/26/17 20:07 Foot - Right Wound Culture - Final Methicillin Resis Staph Aureus 07/28/17 10:41 Urine,Clean Catch Urine Culture - Final 05/25/18 17:32 Sacral Gram Stain - Final 07/26/17 17:32 Sacral Wound Culture - Final Acinetobacter Baumanii/Haemoly Laboratory WBC 8.6 X10^3/uL (3.6-10.0) 08/03/17 06:05 RBC 2.95 X10^6/uL (3.5-5.4) L 08/03/17 06:05 Hgb 8.9 g/dL (12.0-16.0) L 08/03/17 06:05 Hct 26.9 % (36.0-47.0) L 08/03/17 06:05 MCV 91.3 fL (80.0-100.0) 08/03/17 06:05 MCH 30.3 pg (27.0-34.0) 08/03/17 06:05 MCHC 33.2 g/dL (33.0-35.0) 08/03/17 06:05 RDW 15.7 % (11.6-16.5) 08/03/17 06:05 Plt Count 244 X10^3/uL (150.0-450.0) 08/03/17 06:05 Plt Count Comment Adequate (ADEQUATE) 07/30/17 04:18 MPV 7.9 fL (7.4-11.0) 08/03/17 06:05 Neut % (Auto) 78.3 % (42.0-75.0) H 08/03/17 06:05 Lymph % (Auto) 11.2 % (21.0-51.0) L 08/03/17 06:05 [place] % (Auto) 6.7 % (0.0-13.0) 08/03/17 06:05 Eos % (Auto) 3.4 % (0.9-2.9) H 08/03/17 06:05 Baso % (Auto) 0.4 % (0.2-1.0) 08/03/17 06:05 Neut # (Auto) 6.7 x10^3/uL (2.2-4.8) H 08/03/17 06:05 Lymph # (Auto) 1.0 X10^3/uL (1.3-2.9) L 08/03/17 06:05 [place] # (Auto) 0.6 x10^3/uL (0.3-0.8) 08/03/17 06:05 Eos # (Auto) 0.3 x10^3/uL (0.0-0.2) H 08/03/17 06:05 Baso # (Auto) 0.0 X10^3/uL (0.0-0.1) 08/03/17 06:05 Absolute Nucleated RBC 0.0 /100WBC 08/03/17 06:05 Total Counted 100 07/30/17 04:18 Neutrophils % (Manual) 79 % (39-76) H 07/30/17 04:18 Band Neutrophils % 12 % (0-10) H 07/30/17 04:18 Lymphocytes % (Manual) 5 % (13-43) L 07/30/17 04:18 Monocytes % (Manual) 4 % (4-9) 07/30/17 04:18 Eosinophils % (Manual) 0 % (0-6) 07/28/17 04:10 Plt Morphology Comment Normal (NORMAL) 07/30/17 04:18 RBC Morphology Abnormal (NORMAL) A 07/30/17 04:18 Hypochromasia 1+ A 07/30/17 04:18 Sodium 140 mmol/L (136-145) 08/03/17 06:05 Corrected Sodium TNP 08/03/17 06:05 Potassium 3.1 mmol/L (3.5-5.1) L 08/03/17 06:05 Chloride 103 mmol/L (98-107) 08/03/17 06:05 Carbon Dioxide 31.7 mmol/L (21-32) 08/03/17 06:05 BUN 5 mg/dL (7-18) L 08/03/17 06:05 Creatinine 0.37 mg/dL (0.55-1.02) L 08/03/17 06:05 Est GFR (MDRD) Af Amer > 60 (>60) 08/03/17 06:05 Est GFR (MDRD) Non-Af > 60 (>60) 08/03/17 06:05 Glucose 91 mg/dL (65-99) 08/03/17 06:05 Lactic Acid 0.3 mmol/L (0.4-2.0) L 07/29/17 05:35 Calcium 7.5 mg/dL (8.5-10.1) L 08/03/17 06:05 Corrected Calcium 9.7 mg/dL (8.5-10.1) 08/03/17 06:05 Iron 14 ug/dL (50-175) L 07/28/17 11:58 Transferrin 64 mg/dL (202-364) L 07/28/17 11:58 Ferritin 2863 ng/mL (8-252) H 07/28/17 11:58 Total Bilirubin 0.40 mg/dL (0.2-1.0) 08/03/17 06:05 AST 9 Units/L (15-37) L 08/03/17 06:05 ALT 9 Units/L (12-78) L 08/03/17 06:05 Alkaline Phosphatase 71 Units/L (46-116) 08/03/17 06:05 Creatine Kinase 18 Units/L (26-192) L 07/26/17 19:36 CK-MB (CK-2) < 1.0 ng/mL (0-4.0) 07/26/17 19:36 CK/CKMB % Calc 5.6 % (<4) 07/26/17 19:36 Troponin I 0.02 ng/mL (0-1.5) 07/26/17 19:36 C-Reactive Protein 178.80 mg/L (0-3.0) H 07/26/17 13:15 Total Protein 5.1 g/dL (6.4-8.2) L 08/03/17 06:05 Albumin 1.3 g/dL (3.4-5.0) L 08/03/17 06:05 Globulin 3.8 g/dL (2.5-4.5) 08/03/17 06:05 Albumin/Globulin Ratio 0.3 Ratio (1.1-2.1) L 08/03/17 06:05 Vitamin B12 > 2000 pg/mL (193-986) H 07/28/17 11:58 Folate > 20.0 ng/mL (>8.6) 07/28/17 11:58 Specimen Type Catherized urine 07/27/17 05:48 Urine Color [place] (YELLOW) 07/27/17 05:48 Urine Appearance Slightly hazy (CLEAR) 07/27/17 05:48 Urine pH 5.0 (5.0 - 8.0) 07/27/17 05:48 Ur Specific [place] 1.020 (1.000-1.030) 07/27/17 05:48 Urine Protein 2+ (NEGATIVE) 07/27/17 05:48 Urine Glucose (UA) Negative (NEGATIVE) 07/27/17 05:48 Urine Ketones 4+ (NEGATIVE) 07/27/17 05:48 Urine Occult Blood 3+ (NEGATIVE) 07/27/17 05:48 Urine Nitrite Positive (NEGATIVE) 07/27/17 05:48 Urine Bilirubin 1+ (NEGATIVE) 07/27/17 05:48 Urine Urobilinogen 2+ (NORMAL) 07/27/17 05:48 Ur Leukocyte Esterase 2+ (NEGATIVE) 07/27/17 05:48 Urine RBC 20-30 /HPF (NONE SEEN) 07/27/17 05:48 Urine WBC 20-30 /HPF (NONE SEEN) 07/27/17 05:48 Ur Squamous Epith Cells Rare /HPF (NEGATIVE) 07/27/17 05:48 Urine Bacteria Trace /HPF (NEGATIVE) 07/27/17 05:48 Hyaline Casts Few /LPF (NEGATIVE) 07/26/17 13:20 Urine Mucus Few /HPF (NEGATIVE) 07/27/17 05:48 Ur Culture Indicated? Yes/culture set up 07/27/17 05:48 Blood Type O POSITIVE 07/31/17 09:35 Antibody Screen Negative 07/31/17 09:35 Crossmatch See Detail 07/31/17 09:35 - Plan (1) Anemia Status: Acute Plan: MONITOR CBC, TRANSFUSE NEEDED (2) Colostomy in place Status: Acute Plan: COLOSTOMY CARE (3) Dehydration, mild Status: Acute Plan: MONITOR LABS, IV HYDRATION. (4) Generalized weakness Status: Acute (5) Tracheostomy in place Status: Acute (6) UTI (urinary tract infection) Status: Acute Plan: URINE CULTURE PENDING. IV ANTIBIOTICS. (7) Decubitus skin ulcer Status: Chronic Plan: WOUND CULTURES, WOUND CARE. (8) Diabetes Status: Chronic Plan: BLOOD SUGAR MONITORING (9) HTN (hypertension) Status: Chronic
== END 2017-08-05 19:20 | DRG 689 ==
LOC: ER 12:06 → MED/SURG 16:06
PROVIDERS: ADMIT Internal Medicine; ATTEND Internal Medicine
DX: R79.82 Elevated C-reactive protein (CRP); N39.0 Urinary tract infection, site not specified; Z93.3 Colostomy status; E86.0 Dehydration; Z93.0 Tracheostomy status; K21.9 Gastro-esophageal reflux disease without esophagitis; F41.8 Other specified anxiety disorders; B96.89 Other specified bacterial agents as the cause of diseases classified elsewhere; R94.31 Abnormal electrocardiogram [ECG] [EKG]; M19.90 Unspecified osteoarthritis, unspecified site; B95.62 Methicillin resistant Staphylococcus aureus infection as the cause of diseases classified elsewhere; E11.65 Type 2 diabetes mellitus with hyperglycemia; G61.0 Guillain-Barre syndrome; I50.9 Heart failure, unspecified; L89.154 Pressure ulcer of sacral region, stage 4
CPT/HCPCS: 36415; 36430; 71010; 71045; 80053; 81001; 82550; 82553; 82607; 82728; 82746; 83540; 83605; 84466; 84484; 85014; 85018; 85025; 86140; 86850; 86900; 86901; 86922; 87040; 87070; 87075; 87077; 87086; 87088; 87150; 87186; 87205; 93005; 93010; 94640; 94760; 96365; 96367; 96374; 96375; 99284; A4216; A4217; A4222; C9113; P9016; S0028; J0131; J0278; J0290; J0690; J1200; J1335; J1580; J1940; J2270; J2405; J3260; J7030; J7040; J7050; J7620; S5010